=== PATIENT | male | born 1975 | race Caucasian/White ===

== ENCOUNTER 2023-06-25 17:56 | Inpatient (IN) ==
--- NOTE | 2023-06-25 18:02 | ED Triage Note ---
Date of Service June 25, 2023 History of Present Illness This patient was briefly evaluated while in triage. An abbreviated physical exam was performed. This patient is a 47-year-old Male who presents to the ED for evaluation of severe back pain. He states he has a known herniated disc and is scheduled for surgery with Dr. Elkins later this month. He states he is now unable to walk and is in severe pain. They talked to Dr. Elkins's office and were told to come to the ER if he could not handle the pain at home. He has been taking aleve without relief. Physical Exam VITALS: Vitals are noted on the nurse's note and reviewed by myself. GENERAL: This is a 47-year-old male, leaning over in his wheelchair, dry heaving into an emesis bag. NEURO: Patient was alert and oriented to person place and time. Initial orders for labs and / or imaging were placed and patient was placed in the waiting area until a bed is available. Please see further documentation for the full ED course.
--- NOTE | 2023-06-25 19:09 | Emergency Department Note ---
ED Provider Note History of Present Illness Chief Complaint: Back Injury/Pain Stated Complaint: HERNIATED DISK, BACK PAIN, VOMIT Time Seen by Provider: 06/25/23 19:07 This patient is a 47-year-old Male who presents to the ED for evaluation of severe back pain. He states he has a known herniated disc and is scheduled for surgery with Dr. Elkins later this month. He states he is now unable to walk and is in severe pain. He reports that he has had multiple falls due to weakness and difficulty walking. They talked to Dr. Elkins's office and were told to come to the ER if he could not handle the pain at home. He has been taking aleve without relief. He states that it has been very painful to urinate or have a bowel movement. He denies any incontinence. Home Medications Medication Instructions Recorded Confirmed Type diazepam 10 mg tablet 10 mg PO BID PRN Anxiety 06/25/23 06/25/23 History gabapentin 600 mg tablet 600 mg PO DIRECTED 06/25/23 06/25/23 History quetiapine 100 mg tablet 100 mg PO DAILY 06/25/23 06/25/23 History quetiapine 50 mg tablet 50 mg PO PM 06/25/23 06/25/23 History ropinirole 2 mg tablet 2 mg PO PM PRN Other 06/25/23 06/25/23 History Allergies Allergy/AdvReac Type Severity Reaction Status Date / Time diphenhydramine AdvReac Mild makes him Unverified 06/25/23 19:36 [From Benadryl] want to jump out of skin Past Med/Surg History Social History Smoking Status: Current every day smoker Tobacco Type: E-cigarettes / Vaping Preferred Language: Malian Feels Safe at Home: Yes Physical Exam Vital Signs Vital Signs - 24 hr 06/25/23 17:59 Temperature 36.7 C Temperature Source Temporal Artery Scan Pulse Rate 93 H Respiratory Rate 20 Respiratory Effort / Characteristics Non-Labored Spontaneous Respiratory Depth Normal Blood Pressure 127/65 Blood Pressure Mean 85 Pulse Oximetry 96 Oxygen Delivery Method Room Air Sepsis Recent Fever Within 48 Hours No Sepsis New/Unexplained Change in Mental Status N/A Sepsis Action Taken by Nursing No Action Required VITALS: Vitals are noted on the nurse's note and reviewed by myself. GENERAL: This is a 47-year-old male, uncomfortable appearing. SKIN: The skin was without rashes. HEART: Regular rate and rhythm without murmurs gallops or rubs. LUNGS: Clear to auscultation bilaterally without wheezes, rales or rhonchi. MUSCULOSKELETAL: There is generalized tenderness to the lumbar region of the back. Strength slightly decreased on the left compared to the right. NEURO: Patient was alert and oriented to person place and time. Distal sensation intact. Course Administered Medications Hydromorphone HCl (Hydromorphone Inj 1 Mg/Ml Syringe) 1 mg IV Q3H PRN PRN Reason: severe pain (scale 7-10) Stop: 07/09/23 20:49 Last Admin: 06/25/23 21:10 Dose: 1 mg Documented By: RACHAEL Lactated Ringer's (Lr) 1,000 mls @ 75 mls/hr IV .[id number] ANKITA Stop: 07/25/23 20:49 Last Admin: 06/25/23 21:15 Dose: 75 mls/hr Documented By: RACHAEL Acetaminophen (Ofirmev) 1,000 mg in 100 mls @ 400 mls/hr IV Q8H PRN PRN Reason: Pain Rating 1-3 & Pre PT Stop: 06/26/23 20:50 Last Infusion: 06/25/23 21:31 Dose: 0 mls/hr Documented By: Admin: 06/25/23 21:15 Dose: 400 mls/hr Documented By: RACHAEL Lorazepam (Lorazepam 2 Mg/1 Ml Vial) 0.5 mg IV Q8H PRN PRN Reason: Sedation/Anxiety Stop: 07/25/23 20:49 Last Admin: 06/25/23 21:10 Dose: 0.5 mg Documented By: RACHAEL Oxycodone HCl (Oxycodone Hcl Ir 5 Mg Tab (Immediate Release)) 5 - 10 mg PO Q4H PRN PRN Reason: mod to severe pain Stop: 07/09/23 20:49 Last Admin: 06/25/23 22:46 Dose: 10 mg Documented By: RACHAEL Discontinued Medications Cyclobenzaprine HCl (Cyclobenzaprine Hcl 10 Mg Tab) 10 mg PO NOW STA Stop: 06/25/23 21:43 Last Admin: 06/25/23 22:26 Dose: 10 mg Documented By: JASMIN Dexamethasone Sodium Phosphate (DexamethasonePf 10 Mg/Ml Vial) 10 mg IV NOW ONE Stop: 06/25/23 19:18 Last Admin: 06/25/23 20:02 Dose: 10 mg Documented By: NELLA Hydromorphone HCl (Hydromorphone Inj 1 Mg/Ml Syringe) 1 mg IV NOW STA Stop: 06/25/23 19:14 Last Admin: 06/25/23 19:59 Dose: 1 mg Documented By: NELLA Ketorolac Tromethamine (Ketorolac 30 Mg/Ml Vial) 30 mg IV NOW ONE Stop: 06/25/23 21:54 Last Admin: 06/25/23 22:26 Dose: 30 mg Documented By: JASMIN Medical Decision Making Differential Diagnosis Differential diagnosis includes cauda equina syndrome, cord compression, disc herniation, muscle spasm, lumbar strain, epidural abscess, malignancy, transverse myelitis, urinary tract infection, colitis, diverticulitis, kidney stone, among others. Home Medications was personally reviewed by ma Laboratory Data 06/25/23 21:01 06/25/23 21:01 MDM Narrative This patient is a 47-year-old male who presents to the emergency department for evaluation of severe back pain and ambulatory dysfunction. Patient has a known lumbar disc herniation and is scheduled for surgery later this month with Dr. Elkins. I did speak with Dr. Elkins who felt that it was reasonable to admit the patient given his ambulatory dysfunction. He did request repeat MRI and this was ordered. Dilaudid was ordered for pain. Impression Lumbar radiculopathy, Ambulatory dysfunction Discharge Plan Visit Data Chief Complaint: Back Injury/Pain Stated Complaint: HERNIATED DISK, BACK PAIN, VOMIT ED Provider: Lisa Medina ED Midlevel Provider: Debbie Schmitz Discharge Problem: Lumbar radiculopathy, Ambulatory dysfunction Patient Disposition: Admitted As Inpatient Discharge Instructions Interventions: ED Discharge Assessment Last Done: 06/25/23 20:45
[2023-06-25] MEDS ORDERED: HYDROmorphone INJ 1 MG/ML SYRINGE IV STA (19:13)
[2023-06-25] MEDS ORDERED: dexAMETHasone**PF** 10 MG/ML VIAL IV ONE (19:17)
[2023-06-25] MEDS ORDERED: ONDANSETRON 4 MG OD TAB PO PRN (20:50)
[2023-06-25] MEDS ORDERED: ONDANSETRON INJ 2 MG/ML 2 ML VIAL IV PRN (20:50)
[2023-06-25] MEDS ORDERED: PROMETHAZINE HCL 12.5 MG in SODIUM CHLORIDE 0.9% 50 ML IV PRN (20:50)
[2023-06-25] MEDS ORDERED: LORazepam 0.5 MG TAB PO PRN (20:50)
[2023-06-25] MEDS ORDERED: METOCLOPRAMIDE HCL INJ 5 MG/ML 2 ML VIAL IV PRN (20:50)
[2023-06-25] MEDS ORDERED: NALOXONE HCL 0.4 MG/1 ML VIAL/CARP IV PRN (20:50)
[2023-06-25] MEDS ORDERED: HYDROmorphone INJ 0.5 MG/0.5 ML SYR IV PRN (20:50)
[2023-06-25] MEDS: HYDROmorphone INJ 1 MG/ML SYRINGE IV PRN ×2 (21:10→23:43)
[2023-06-25] MEDS: LORazepam 2 MG/1 ML VIAL IV PRN (21:10)
[2023-06-25] MEDS: LACTATED RINGER'S 1,000 ML IV SCH (21:15)
[2023-06-25] MEDS: ACETAMINOPHEN 1,000 MG/100 ML VIAL IV PRN (21:15)
[2023-06-25 21:29] LABS: Basophils # (auto) 0.02 K/uL (0-0.2); Basophils % (auto) 0.5 %; Eosinophils # (auto) 0.11 K/uL (0-0.50); Eosinophils % (auto) 2.6 %; Hematocrit (blood only) 40.8 % (42.0-52.0); Hemoglobin 13.4 g/dl (14.0-18.0); Immature Granulocytes # (auto) 0.01 K/uL (0.01-0.20); Immature Granulocytes % (auto) 0.2 %; Lymphocytes % (auto) 23.2 %; Mean Corpuscular Hemoglobin 26.4 pg (25.0-34.0); Mean Corpuscular Hgb Conc 32.8 g/dL (32.0-36.0); Mean Corpuscular Volume 80.3 fL (80.0-100.0); Mean Platelet Volume 10.2 fL (9.4-12.4); Monocytes # (auto) 0.25 K/uL (0.11-0.59); Monocytes % (auto) 5.8 %; Neutrophils # (auto) 2.92 K/uL (1.40-6.50); Neutrophils % (auto) 67.7 %; Platelet Count 209 K/uL (130-400); RDW Coefficient of Variation 17.3 % (11.5-14.5); RDW Standard Deviation 50.4 fL (36.4-46.3); Red Blood Count 5.08 M/uL (4.70-6.10); White Blood Count 4.31 K/ul (4.8-10.8)
[2023-06-25] MEDS ORDERED: HYDROmorphone INJ 0.5 MG/0.5 ML SYR IV STA (21:42)
[2023-06-25] MEDS ORDERED: CYCLOBENZAPRINE HCL 10 MG TAB PO STA (21:42)
[2023-06-25 21:47] LABS: Albumin Globulin Ratio 1.5 (0.9-2); Albumin Level 3.8 gm/dl (3.4-5.0); BUN Creatinine Ratio 13.2 (10-20); Bilirubin,Total 0.3 mg/dl (0.2-1.0); Calcium 8.1 mg/dl (8.6-10.3); Creatinine Clr Calc Pharmacy 77.1 ml/min; Est GFR (African American) 81.6 ml/min; Est GFR (Non-African American) 70.4 ml/min; Globulin 2.5 gm/dl (2.5-4.0); Potassium 4.4 mmol/L (3.5-5.1); Total Protein 6.3 gm/dl (6.0-8.3)
[2023-06-25] MEDS ORDERED: KETOROLAC 30 MG/ML VIAL IV ONE (21:53)
[2023-06-25] MEDS: oxyCODONE HCL IR 5 MG TAB (IMMEDIATE RELEASE) PO PRN (22:46)
[2023-06-25] MEDS ORDERED: diazePAM 5 MG TABLET PO PRN (22:56)
[2023-06-25] MEDS: rOPINIRole HCL 2 MG TABLET PO PRN (23:44)
[2023-06-25] MEDS: GABAPENTIN 600 MG TAB PO SCH (23:44)
[2023-06-26] MEDS: QUEtiapine FUMARATE 25 MG TABLET PO SCH ×2 (00:40→22:29)
--- NOTE | 2023-06-26 01:18 | Consultation ---
Date of Consultation June 26, 2023 Assessment & Plan (1) Lumbar radiculopathy: 47-year-old male presents with severe back pain lumbar radiculopathy and ambulatory dysfunction Severe back pain Ambulatory dysfunction We will follow MRI Pain control we will get preop chest x-ray and EKG and if okay patient should at acceptable risk for surgery Await Ortho input DVT prophylaxis and disposition as per orthopedics History of Present Illness Reason for Consultation: Severe back pain Attending Physician: Nadir Elkins DO History of Present Illness 47-year-old male with no significant past medical history as per patient and taking medication just to relax him as he is a workaholic was admitted for severe back pain. Patient states his back pain for for a long time but lately got worse. Last couple of days it got worse again difficult to ambulate and falling frequently. Denies numbness lower extremity. States she has to wait for 30 seconds to micturate or to move his bowels and attributes increased pain. A lot of nausea today. Afebrile. Denies any headache. Once in a while he gets runny nose. No cough. No difficulty swallowing. No chest pain or shortness of breath. No abdominal pain. Currently resting comfortably. Past medical history mentioned above Social history denies smoking or drug use. Alcohol occasional. Family history father had massive CA at age 56. Mother has insomnia Allergies Allergy/AdvReac Type Severity Reaction Status Date / Time diphenhydramine AdvReac Mild makes him Unverified 06/25/23 19:36 [From Benadryl] want to jump out of skin Home Medications Medication Instructions Recorded Confirmed Type diazepam 10 mg tablet 10 mg PO BID PRN Anxiety 06/25/23 06/25/23 History gabapentin 600 mg tablet 600 mg PO DIRECTED 06/25/23 06/25/23 History quetiapine 100 mg tablet 100 mg PO DAILY 06/25/23 06/25/23 History quetiapine 50 mg tablet 50 mg PO PM 06/25/23 06/25/23 History ropinirole 2 mg tablet 2 mg PO PM PRN Other 06/25/23 06/25/23 History Patient History Social History Smoking Status: Current every day smoker Tobacco Type: E-cigarettes / Vaping Preferred Language: Guatemalan Feels Safe at Home: Yes Review of Systems Review of Systems: All systems reviewed & are unremarkable except as noted in Subjective Physical Exam Physical Exam: General- not in distress Head- atraumatic Eyes- EOMI, Neck- supple, no JVD, Lungs- clear to auscultation and percussion no added sounds Heart- regular rate and rhythm; no murmur, no gallop. Abdomen- normal bowel sounds, soft, nontender, no distension Extremities- no pretibial edema, no erythema seen Neuro- alert, oriented x 3, EOMI; no facial palsy; no dysarthria; painful lower extermity movements Skin- warm & dry Results & Data Vital Signs (Past 12 Hours) Vital Signs Temp Pulse Pulse Resp BP BP Pulse Ox 06/25/23 22:50 177/104 H 06/25/23 20:56 36.5 C 75 24 192/103 H 94 06/25/23 20:00 90 18 94 06/25/23 20:00 90 18 171/70 H 94 06/25/23 17:59 36.7 C 93 H 20 127/65 96 O2 Del Method 06/25/23 22:50 06/25/23 20:56 Room Air 06/25/23 20:00 Room Air 06/25/23 20:00 Room Air 06/25/23 17:59 Room Air
--- NOTE | 2023-06-26 01:47 | Magnetic Resonance Report ---
Exam(s): MRI L SPINE Without Contrast EXAM: MR Lumbar Spine Without Intravenous Contrast CLINICAL HISTORY: Reason for exam: Low back pain, leg weakness. TECHNIQUE: Magnetic resonance images of the lumbar spine without intravenous contrast in multiple planes. COMPARISON: No relevant prior studies available. FINDINGS: Vertebrae: There are 5 lumbar type vertebral bodies with a mild levoscoliosis and shallow lumbar lordosis. There is mild grade 1 retrolisthesis of L2 on L3 measuring 3 mm and retrolisthesis of L3 on L4 measuring 2 mm. There is mild wedging of the L1 and L2 segments, which may be physiologic. Otherwise, there is normal vertebral body height and alignment. The bone marrow signal is heterogeneous with areas of focal fat or venous malformations. No acute fracture. There is mild wedging of the T11 and T12 segments, which is likely physiologic. Spinal cord: The conus is normal size, shape and signal characteristics, terminating at T12-L1. Soft tissues: Mild atrophy of the psoas, paraspinous and intraspinous musculature. The aorta and IVC flow voids are intact. The visualized kidneys are unremarkable. DISCS/SPINAL CANAL/NEURAL FORAMINA: L1-L2: There is mild disc degeneration with disc bulge asymmetric to the left flattening of ventral thecal sac. There is minimal to mild facet arthropathy with mild synovitis. L2-L3: Moderate distal duration with annular disc bulge asymmetric to the right causing a moderate right subarticular recess stenosis with mild impingement of the transiting right L3 nerve root. There is disc extending to the neural foramina without evidence of impingement or significant stenosis. There is mild facet arthropathy with mild synovitis. L3-L4: Moderate disc degeneration with annular disc bulge and superimposed caudally dissecting central disc extrusion measuring 8.0 x 5. 8 mm causing a mild subarticular recess stenosis with superimposed spondylolisthesis causing a moderately severe spinal canal stenosis. At one point there is disc extends into the neural foramina causing mild bilateral stenosis without evidence of neural impingement. Mild to moderate facet joint arthropathy with mild synovitis. L4-L5: There is mild disc degeneration with disc bulge causing a mild subarticular recess stenosis. There is a mild facet arthropathy with mild synovitis. L5-S1: There is mild disc degeneration with annular disc bulge causing a mild left subarticular recess stenosis with disc extends to the neural foramina causing mild bilateral stenosis without evidence of neural impingement. There is minimal to mild facet arthropathy with mild synovitis. IMPRESSION: 1. Moderate disc degeneration at L2-3 and L3-4 with mild disc degeneration at L1-L2, L4-5 and L5-S1 with annular disc bulging or disc extrusion flattening the ventral thecal sac and causing a mild subarticular recess stenosis at L3-4 and L5-S1 and a moderate right subarticular recess stenosis at L2-3 with mild impingement of the transiting right L3 nerve root. 2. There is a moderately severe spinal canal stenosis at L3-4. 3. There is mild bilateral L3-4, and mild bilateral L5-S1 neuroforaminal stenosis without evidence of neural impingement. 4. There is minimal to mild facet arthropathy with mild synovitis. 5. No evidence of fracture, infection, tumor or arachnoiditis. Electronically signed by: Hilary Fernando MD 06/26/23 01:46 AM
[2023-06-26] MEDS: HYDROmorphone INJ 1 MG/ML SYRINGE IV PRN ×5 (04:01→22:39)
[2023-06-26] MEDS: oxyCODONE HCL IR 5 MG TAB (IMMEDIATE RELEASE) PO PRN ×4 (05:26→18:27)
[2023-06-26] MEDS: ACETAMINOPHEN 1,000 MG/100 ML VIAL IV PRN ×2 (05:27→15:27)
[2023-06-26] MEDS ORDERED: KETOROLAC TROMETHAMINE 15 MG/ML VIAL IV ONE (06:04)
[2023-06-26] MEDS: LORazepam 2 MG/1 ML VIAL IV PRN ×2 (07:44→16:26)
--- NOTE | 2023-06-26 08:11 | XRay Report ---
XR chest 1V portable CLINICAL HISTORY: Preoperative evaluation. COMPARISON STUDY: No previous studies for comparison. FINDINGS: Lung volumes are normal. Lungs are clear. There is no pneumothorax or pleural effusion. Car diac size is normal. Mediastinal contours are normal. There is no evidence for pulmonary edema. IMPRESSION: No acute cardiopulmonary findings. ACT 112: Negative or not required by law. Electronically signed by: Tim De La Rosa M.D. 06/26/2023 8:10 AM
[2023-06-26] MEDS: GABAPENTIN 600 MG TAB PO SCH ×2 (08:28→22:30)
[2023-06-26] MEDS: QUEtiapine FUMARATE 100 MG TABLET PO SCH (08:28)
--- NOTE | 2023-06-26 08:51 | History & Physical Report ---
Date of Service June 26, 2023 Assessment & Plan (1) Neurogenic claudication due to lumbar spinal stenosis: Plan: Assessment severe lumbar spinal stenosis with radiculopathy. Plan at this time an updated MRI does continue to demonstrate severe spinal stenosis at L3-L4 followed by L2-L3. There is facet hypertrophy L5-S1 on the left. Plan at this point has had a steady decline in status and recommending urgent decompression fusion L2-L3 L3-L4. He will require wide decompression compromise in the facet joints contributing to iatrogenic instability subsequently requiring stabilization by way of fusion. Risk benefits pros cons alternatives in detail. This time we will try to have surgery ranged and performed as soon as possible. Admission and Anticipated Discharge Date Admission Date: June 25, 2023 History of Present Illness Chief Complaint: Severe back and bilateral leg pain with weakness Primary Care Provider: Erlin Welch This is a 47-year-old male who presents with marked decline in status. He is struggling with severe lumbosacral back pain rating down the posterior thighs. Markedly limits his ability to stand and ambulate. He is having significant issues with urinary retention. He describes breakaway weakness secondary to pain. He is scheduled for surgery towards the end of this month. Allergies Allergy/AdvReac Type Severity Reaction Status Date / Time diphenhydramine AdvReac Mild makes him Unverified 06/25/23 19:36 [From Benlesl] want to jump out of skin Home Medications Medication Instructions Recorded Confirmed Type diazepam 10 mg tablet 10 mg PO BID PRN Anxiety 06/25/23 06/25/23 History gabapentin 600 mg tablet 600 mg PO DIRECTED 06/25/23 06/25/23 History quetiapine 100 mg tablet 100 mg PO DAILY 06/25/23 06/25/23 History quetiapine 50 mg tablet 50 mg PO PM 06/25/23 06/25/23 History ropinirole 2 mg tablet 2 mg PO PM PRN Other 06/25/23 06/25/23 History Past Med/Surg History Social History Smoking Status: Current every day smoker Tobacco Type: E-cigarettes / Vaping Do You Dip or Chew Tobacco: No; Hx Alcohol Use: Yes Alcohol type: beer Hx Substance Use: No Preferred Language: Bulgarian Communication Ability: Effective Catering Service Manager Required: No Beliefs That Will Affect Care: None Current Living Situation: Spouse Other Information That Helps Us Care for You: No Feels Safe at Home: Yes Safety Concerns: Feels Safe At This Time Assistive Devices: None Physical Exam Physical Exam: On exam he is currently in bed. He demonstrates 4+/5 quadriceps plantarflexion dorsiflexion. Sensory is intact. Is marked tension signs with straight leg raising. He is in obvious severe distress. Results & Data Results & Data Vital Signs (Past 12 Hours) Vital Signs Temp Pulse Resp BP Pulse Ox O2 Del Method 06/26/23 07:35 36.4 C L 54 L 16 151/90 H 98 Room Air 06/26/23 06:18 61 16 157/89 H 99 Room Air 06/25/23 20:50 Room Air 06/26/23 03:11 16 06/25/23 22:50 177/104 H 06/25/23 20:56 36.5 C 75 24 192/103 H 94 Room Air Code Status & VTE Plan VTE Prophylaxis Plan VTE Prophylaxis will be ordered: Yes
[2023-06-26] MEDS ORDERED: HYDROmorphone INJ 1 MG/ML SYRINGE IV STA (09:52)
[2023-06-26] MEDS: KETOROLAC 30 MG/ML VIAL IV PRN ×2 (11:55→18:28)
[2023-06-26] MEDS: diazePAM 5 MG TABLET PO PRN ×2 (12:00→22:29)
[2023-06-26] MEDS: LACTATED RINGER'S 1,000 ML IV SCH (12:02)
[2023-06-26] MEDS: dexAMETHasone 8 MG in SYRINGE 0 ML IV SCH ×2 (13:35→22:32)
[2023-06-26] MEDS: POLYETHYLENE (MIRALAX) 17 GM PACK PO SCH (16:50)
[2023-06-27] MEDS: oxyCODONE HCL IR 5 MG TAB (IMMEDIATE RELEASE) PO PRN ×5 (00:52→21:40)
[2023-06-27] MEDS: KETOROLAC 30 MG/ML VIAL IV PRN ×3 (00:53→23:47)
[2023-06-27] MEDS: LACTATED RINGER'S 1,000 ML IV SCH ×2 (01:40→15:51)
[2023-06-27] MEDS: HYDROmorphone INJ 1 MG/ML SYRINGE IV PRN ×10 (01:47→23:47)
[2023-06-27] MEDS: ACETAMINOPHEN 500 MG TAB PO PRN (01:54)
[2023-06-27] MEDS: LORazepam 2 MG/1 ML VIAL IV PRN ×3 (02:14→19:40)
[2023-06-27] MEDS: dexAMETHasone 8 MG in SYRINGE 0 ML IV SCH (05:01)
[2023-06-27 07:26] LABS: Hematocrit (blood only) 38.8 % (42.0-52.0); Hemoglobin 12.4 g/dl (14.0-18.0); Mean Corpuscular Hemoglobin 25.9 pg (25.0-34.0); Mean Platelet Volume 10.1 fL (9.4-12.4); Platelet Count 175 K/uL (130-400); RDW Coefficient of Variation 17.2 % (11.5-14.5); Red Blood Count 4.79 M/uL (4.70-6.10); White Blood Count 8.98 K/ul (4.8-10.8)
--- NOTE | 2023-06-27 07:32 | Hospitalist Progress Note ---
Date of Service June 27, 2023 Assessment & Plan (1) Lumbar radiculopathy: Plan: 47-year-old male presents with severe back pain lumbar radiculopathy and ambulatory dysfunction Severe back pain Ambulatory dysfunction Repeated MRI inpt - 1. Moderate disc degeneration at L2-3 and L3-4 with mild disc degeneration at L1-L2, L4-5 and L5-S1 with annular disc bulging or disc extrusion flattening the ventral thecal sac and causing a mild subarticular recess stenosis at L3-4 and L5-S1 and a moderate right subarticular recess stenosis at L2-3 with mild impingement of the transiting right L3 nerve root. 2. There is a moderately severe spinal canal stenosis at L3-4. 3. There is mild bilateral L3-4, and mild bilateral L5-S1 neuroforaminal stenosis without evidence of neural impingement. 4. There is minimal to mild facet arthropathy with mild synovitis. 5. No evidence of fracture, infection, tumor or arachnoiditis. Pain control Admitted under orthopedics service - may likely need surgical intervention Preop chest x-ray and EKG obtained and reviewed. Pt is quite physically active (prior to having severe back pain), and never had chest pain or shortness of breath w/ exercise. Acceptable for surgery. Constipation Bowel regimen w/ miralax, colace, dulcolax ordered DVT prophylaxis and disposition as per orthopedics Admission and Anticipated Discharge Date Admission Date: June 25, 2023 Subjective Pt seen in follow up of back pain, plan for lumbar spine surgery He is laying in bed in NAD, complains of back pain and constipation Pt's present at the bedside Pt is usually quite physically active and never have chest pain or shortness of breath with exercise He reports he only gets short of breath when his back pain is severe Review of Systems Review of Systems: All systems reviewed & are unremarkable except as noted in Subjective Physical Exam Physical Exam: General- WD/WN M in NAD Head- atraumatic Eyes- EOMI, Neck- supple, no JVD, Lungs- clear to auscultation b/l Heart- regular rate and rhythm Abdomen- normal bowel sounds, soft, nontender, no distension Extremities- no pretibial edema, no erythema seen Neuro- alert, oriented x 3, EOMI; no facial palsy; no dysarthria; painful lower extremity movements Skin- warm & dry, multiple tattoos Results & Data Results & Data Vital Signs (Past 12 Hours) Vital Signs Temp Pulse Resp BP Pulse Ox O2 Del Method 06/26/23 22:30 Room Air 06/26/23 21:37 36.5 C 76 18 155/83 H 97 Room Air Laboratory Results 06/27/23 06/27/23 Range/Units 06:28 06:28 WBC 8.98 (4.8-10.8) K/ul RBC 4.79 (4.70-6.10) M/uL Hgb 12.4 L (14.0-18.0) g/dl Hct 38.8 L (42.0-52.0) % MCV 81.0 (80.0-100.0) fL MCH 25.9 (25.0-34.0) pg MCHC 32.0 (32.0-36.0) g/dL RDW Std Deviation 51.0 H (36.4-46.3) fL RDW Coeff of Dhaval 17.2 H (11.5-14.5) % Plt Count 175 (130-400) K/uL MPV 10.1 (9.4-12.4) fL Sodium 136 (136-145) mmol/L Potassium 4.5 (3.5-5.1) mmol/L Chloride 104 (98-107) mmol/L Carbon Dioxide 29 (21-32) mmol/L Anion Gap 3 (3-11) BUN 20 (6-23) mg/dl Creatinine 0.81 D (0.6-1.4) mg/dl Est Cr Clr Drug Dosing 115.2 ml/min Est GFR ( Amer) 121.8 ml/min Est GFR (Non-Af Amer) 105.1 ml/min BUN/Creatinine Ratio 24.7 H (10-20) Glucose 178 H (70-99(Fasting)) mg/dl Calcium 8.3 L (8.6-10.3) mg/dl Magnesium 1.9 (1.7-2.4) mg/dl Medications Administered Current Inpatient Medications Acetaminophen (Acetaminophen 500 Mg Tab) 1,000 mg PO Q8H PRN PRN Reason: MILD Pain Scale 1,2,3 & Pre PT Stop: 07/25/23 20:49 Last Admin: 06/27/23 01:54 Dose: 1,000 mg Diazepam (Diazepam 5 Mg Tablet) 10 mg PO TID PRN PRN Reason: spasms Stop: 07/26/23 09:40 Last Admin: 06/26/23 22:29 Dose: 10 mg Gabapentin (Gabapentin 600 Mg Tab) 600 mg PO BID [facility] Stop: 07/25/23 22:59 Last Admin: 06/26/23 22:30 Dose: 600 mg Hydromorphone HCl (Hydromorphone Inj 0.5 Mg/0.5 Ml Syr) 0.5 mg IV Q3H PRN PRN Reason: MOD pain (scale 4-6) & Pre PT Stop: 07/09/23 20:49 Hydromorphone HCl (Hydromorphone Inj 1 Mg/Ml Syringe) 1 mg IV Q3H PRN PRN Reason: severe pain (scale 7-10) Stop: 07/09/23 20:49 Last Admin: 06/27/23 04:57 Dose: 1 mg Lactated Ringer's (Lr) 1,000 mls @ 75 mls/hr IV .[id number] [facility] Stop: 07/25/23 20:49 Last Admin: 06/27/23 01:40 Dose: 75 mls/hr Promethazine HCl 12.5 mg/ (Sodium Chloride) 50.5 mls @ 202 mls/hr IV Q6H PRN PRN Reason: Nausea &/or Vomiting Stop: 07/25/23 20:49 Dexamethasone 8 mg/ Syringe 2 mls @ 1 mls/min IV Q8H [facility] Stop: 07/26/23 13:59 Last Admin: 06/27/23 05:01 Dose: 1 mls/min Ketorolac Tromethamine (Ketorolac 30 Mg/Ml Vial) 30 mg IV Q6H PRN PRN Reason: Pain Stop: 07/01/23 11:29 Last Admin: 06/27/23 00:53 Dose: 30 mg Lorazepam (Lorazepam 0.5 Mg Tab) 0.5 mg PO Q8H PRN PRN Reason: sedation/anxiety Stop: 07/25/23 20:49 Lorazepam (Lorazepam 2 Mg/1 Ml Vial) 0.5 mg IV Q8H PRN PRN Reason: Sedation/Anxiety Stop: 07/25/23 20:49 Last Admin: 06/27/23 02:14 Dose: 0.5 mg Metoclopramide HCl (Metoclopramide Hcl Inj 5 Mg/Ml 2 Ml Vial) 10 mg IV Q6H PRN PRN Reason: Nausea &/or Vomiting Stop: 07/25/23 20:49 Naloxone HCl (Naloxone Hcl 0.4 Mg/1 Ml Vial/Carp) 0.1 mg IV Q5M PRN PRN Reason: Oversedation/respiratory dep Stop: 07/25/23 20:49 Ondansetron HCl (Ondansetron Inj 2 Mg/Ml 2 Ml Vial) 4 mg IV Q6H PRN PRN Reason: Nausea &/or Vomiting Stop: 07/25/23 20:49 Ondansetron HCl (Ondansetron 4 Mg Od Tab) 4 mg PO Q6H PRN PRN Reason: Nausea Stop: 07/25/23 20:49 Oxycodone HCl (Oxycodone Hcl Ir 5 Mg Tab (Immediate Release)) 5 - 10 mg PO Q4H PRN PRN Reason: mod to severe pain Stop: 07/09/23 20:49 Last Admin: 06/27/23 05:57 Dose: 10 mg Polyethylene Glycol (Polyethylene (Miralax) 17 Gm Pack) 17 gm PO DAILY ANKITA Stop: 07/26/23 15:44 Last Admin: 06/26/23 16:50 Dose: 17 gm Quetiapine Fumarate (Quetiapine Fumarate 100 Mg Tablet) 100 mg PO DAILY ANKITA Stop: 07/26/23 08:59 Last Admin: 06/26/23 08:28 Dose: 100 mg Quetiapine Fumarate (Quetiapine Fumarate 25 Mg Tablet) 50 mg PO PM ANKITA Stop: 07/25/23 22:54 Last Admin: 06/26/23 22:29 Dose: 50 mg Ropinirole HCl (Ropinirole Hcl 2 Mg Tablet) 2 mg PO PM PRN PRN Reason: Other Stop: 07/25/23 22:53 Last Admin: 06/25/23 23:44 Dose: 2 mg
[2023-06-27 08:02] LABS: BUN Creatinine Ratio 24.7 (10-20); Calcium 8.3 mg/dl (8.6-10.3); Creatinine Clr Calc Pharmacy 115.2 ml/min; Est GFR (African American) 121.8 ml/min; Est GFR (Non-African American) 105.1 ml/min; Magnesium 1.9 mg/dl (1.7-2.4); Potassium 4.5 mmol/L (3.5-5.1)
--- NOTE | 2023-06-27 08:53 | Orthopedic Progress Note ---
Date of Service June 27, 2023 Assessment & Plan (1) Neurogenic claudication due to lumbar spinal stenosis: Plan: Patient is still having quite severe pain. Is requiring IV Dilaudid in addition to his oxycodone and Ativan. We can increase the frequency of his Dilaudid to take 1 mg every 2 hours instead of every 3. He is increase his bowel regimen to include MiraLAX, Dulcolax, and Colace. He requires any assistance for ambulation. He does not feel that he is able to go home secondary to his inability to ambulate. We will continue to work with pain control measures and increase his bowel regiment. Admission and Anticipated Discharge Date Admission Date: June 25, 2023 Subjective Patient was seen bedside in room 310. He is still having several months of pain despite being on oxycodone, Dilaudid, and Ativan. He has not yet had a bowel movement and is uncomfortable. He is unable to ambulate independently to the bathroom and requires assistance just to get out of bed. He is scheduled for surgery this coming Friday. He continues to have pain in the lower portion of his back affecting both of his legs. Physical Exam Physical Exam: On exam he is alert and oriented. He appears uncomfortable. His blood pressure is elevated at 160/95. He is able to move his legs to gravity. His abdomen soft and nontender his calves are supple nontender. His gait was not observed. Results & Data Vital Signs (Past 12 Hours) Vital Signs Temp Pulse Resp BP Pulse Ox O2 Del Method 06/27/23 07:45 36.8 C 62 18 160/95 H 97 Room Air 06/26/23 22:30 Room Air 06/26/23 21:37 36.5 C 76 18 155/83 H 97 Room Air
[2023-06-27] MEDS: GABAPENTIN 600 MG TAB PO SCH ×2 (08:56→20:50)
[2023-06-27] MEDS: POLYETHYLENE (MIRALAX) 17 GM PACK PO SCH ×2 (08:56→20:49)
[2023-06-27] MEDS: QUEtiapine FUMARATE 100 MG TABLET PO SCH (08:56)
[2023-06-27] MEDS ORDERED: bisacodyL 10 MG SUPP PR STA (11:16)
[2023-06-27] MEDS: DOCUSATE SODIUM 100 MG CAP PO SCH ×2 (11:55→20:48)
[2023-06-27] MEDS: diazePAM 5 MG TABLET PO PRN ×2 (16:23→21:40)
[2023-06-27] MEDS: QUEtiapine FUMARATE 25 MG TABLET PO SCH (20:50)
[2023-06-27] MEDS ORDERED: POLYETHYLENE (MIRALAX) 17 GM PACK PO SCH (21:00)
--- NOTE | 2023-06-27 21:48 | Electrocardiogram Report ---
Test Reason : Blood Pressure : / mmHG Vent. Rate : 066 BPM Atrial Rate : 066 BPM P-R Int : 148 ms QRS Dur : 096 ms QT Int : 416 ms P-R-T Axes : 078 062 075 degrees QTc Int : 436 ms Normal sinus rhythm Possible Anterior infarct , age undetermined Abnormal ECG No previous ECGs available Confirmed by Rj Chow ([id number]) on 06/27/2023 9:47:52 PM Referred By: REFERRED SELF Confirmed By:Rj Chow
[2023-06-28] MEDS: HYDROmorphone INJ 1 MG/ML SYRINGE IV PRN ×10 (01:53→21:05)
[2023-06-28] MEDS: oxyCODONE HCL IR 5 MG TAB (IMMEDIATE RELEASE) PO PRN ×5 (03:54→21:59)
[2023-06-28] MEDS: LACTATED RINGER'S 1,000 ML IV SCH ×2 (03:58→16:42)
[2023-06-28] MEDS: KETOROLAC 30 MG/ML VIAL IV PRN (05:59)
[2023-06-28] MEDS: GABAPENTIN 600 MG TAB PO SCH ×2 (08:22→21:15)
[2023-06-28] MEDS: POLYETHYLENE (MIRALAX) 17 GM PACK PO SCH ×3 (08:22→21:15)
[2023-06-28] MEDS: DOCUSATE SODIUM 100 MG CAP PO SCH ×2 (08:22→21:14)
[2023-06-28] MEDS: QUEtiapine FUMARATE 100 MG TABLET PO SCH (08:23)
--- NOTE | 2023-06-28 10:08 | Orthopedic Progress Note ---
Date of Service June 28, 2023 Assessment & Plan (1) Neurogenic claudication due to lumbar spinal stenosis: Plan: At this time we will discontinue the Valium attempt Ativan for additional pain control. I have emphasized will not increase his narcotic availability. I attempted to suggest discharge today to follow-up next week but he feels his pain is not adequately controlled but not available tolerated at home. We will hopefully be able to move his surgery up sooner in the week. Admission and Anticipated Discharge Date Admission Date: June 25, 2023 Subjective patient continues to complain of 8 out of 10 back and leg pain despite IV medications. Physical Exam Physical Exam: Patient is in bed at this time. Is neurologically intact. Is alert and oriented and cooperative with exam. Results & Data Vital Signs (Past 12 Hours) Vital Signs Temp Pulse Resp BP Pulse Ox O2 Del Method 06/28/23 07:41 36.4 C L 61 18 138/82 99 Room Air
[2023-06-28] MEDS: LORazepam 1 MG TAB PO PRN ×3 (10:42→22:51)
--- NOTE | 2023-06-28 15:24 | Hospitalist Progress Note ---
Date of Service June 28, 2023 Assessment & Plan (1) Lumbar radiculopathy: Plan: 47-year-old male presents with severe back pain lumbar radiculopathy and ambulatory dysfunction Severe back pain Ambulatory dysfunction Repeated MRI inpt - 1. Moderate disc degeneration at L2-3 and L3-4 with mild disc degeneration at L1-L2, L4-5 and L5-S1 with annular disc bulging or disc extrusion flattening the ventral thecal sac and causing a mild subarticular recess stenosis at L3-4 and L5-S1 and a moderate right subarticular recess stenosis at L2-3 with mild impingement of the transiting right L3 nerve root. 2. There is a moderately severe spinal canal stenosis at L3-4. 3. There is mild bilateral L3-4, and mild bilateral L5-S1 neuroforaminal stenosis without evidence of neural impingement. 4. There is minimal to mild facet arthropathy with mild synovitis. 5. No evidence of fracture, infection, tumor or arachnoiditis. Pain control Admitted under orthopedics service - may likely need surgical intervention Preop chest x-ray and EKG obtained and reviewed. Pt is quite physically active (prior to having severe back pain), and never had chest pain or shortness of breath w/ exercise. Acceptable for surgery. Constipation Bowel regimen w/ miralax, colace, dulcolax ordered added milk of magnesia if no success, will give enema this evening - pt in agreement DVT prophylaxis and disposition as per orthopedics Admission and Anticipated Discharge Date Admission Date: June 25, 2023 Subjective Pt seen in follow up of back pain, plan for lumbar spine surgery He is laying in bed in NAD, continues to complain of back pain and constipation Pt's present at the bedside No chest pain, shortness of breath Review of Systems Review of Systems: All systems reviewed & are unremarkable except as noted in Subjective Physical Exam Physical Exam: General- WD/WN M in NAD Head- atraumatic Eyes- EOMI, Neck- supple, no JVD, Lungs- clear to auscultation b/l Heart- regular rate and rhythm Abdomen- normal bowel sounds, soft, nontender, no distension Extremities- no pretibial edema, no erythema seen Neuro- alert, oriented x 3, EOMI; no facial palsy; no dysarthria; painful lower extremity movements Skin- warm & dry, multiple tattoos Results & Data Results & Data Vital Signs (Past 12 Hours) Vital Signs Temp Pulse Resp BP Pulse Ox O2 Del Method 06/28/23 14:48 36.7 C 67 18 134/74 97 Room Air 06/28/23 07:41 36.4 C L 61 18 138/82 99 Room Air Medications Administered Current Inpatient Medications Acetaminophen (Acetaminophen 500 Mg Tab) 1,000 mg PO Q8H PRN PRN Reason: MILD Pain Scale 1,2,3 & Pre PT Stop: 07/25/23 20:49 Last Admin: 06/27/23 01:54 Dose: 1,000 mg Docusate Sodium (Docusate Sodium 100 Mg Cap) 100 mg PO BID [facility] Stop: 07/27/23 11:29 Last Admin: 06/28/23 08:22 Dose: 100 mg Gabapentin (Gabapentin 600 Mg Tab) 600 mg PO BID [facility] Stop: 07/25/23 22:59 Last Admin: 06/28/23 08:22 Dose: 600 mg Hydromorphone HCl (Hydromorphone Inj 0.5 Mg/0.5 Ml Syr) 0.5 mg IV Q3H PRN PRN Reason: MOD pain (scale 4-6) & Pre PT Stop: 07/09/23 20:49 Hydromorphone HCl (Hydromorphone Inj 1 Mg/Ml Syringe) 1 mg IV Q2H PRN PRN Reason: severe pain (scale 7-10) Stop: 07/09/23 20:49 Last Admin: 06/28/23 14:49 Dose: 1 mg Lactated Ringer's (Lr) 1,000 mls @ 75 mls/hr IV .[id number] [facility] Stop: 07/25/23 20:49 Last Admin: 06/28/23 03:58 Dose: 75 mls/hr Promethazine HCl 12.5 mg/ (Sodium Chloride) 50.5 mls @ 202 mls/hr IV Q6H PRN PRN Reason: Nausea &/or Vomiting Stop: 07/25/23 20:49 Lorazepam (Lorazepam 2 Mg/1 Ml Vial) 0.5 mg IV Q8H PRN PRN Reason: Sedation/Anxiety Stop: 07/25/23 20:49 Last Admin: 06/27/23 19:40 Dose: 0.5 mg Lorazepam (Lorazepam 1 Mg Tab) 1 mg PO Q6 PRN PRN Reason: sedation/anxiety Stop: 07/25/23 20:49 Last Admin: 06/28/23 10:42 Dose: 1 mg Metoclopramide HCl (Metoclopramide Hcl Inj 5 Mg/Ml 2 Ml Vial) 10 mg IV Q6H PRN PRN Reason: Nausea &/or Vomiting Stop: 07/25/23 20:49 Naloxone HCl (Naloxone Hcl 0.4 Mg/1 Ml Vial/Carp) 0.1 mg IV Q5M PRN PRN Reason: Oversedation/respiratory dep Stop: 07/25/23 20:49 Ondansetron HCl (Ondansetron Inj 2 Mg/Ml 2 Ml Vial) 4 mg IV Q6H PRN PRN Reason: Nausea &/or Vomiting Stop: 07/25/23 20:49 Ondansetron HCl (Ondansetron 4 Mg Od Tab) 4 mg PO Q6H PRN PRN Reason: Nausea Stop: 07/25/23 20:49 Oxycodone HCl (Oxycodone Hcl Ir 5 Mg Tab (Immediate Release)) 5 - 10 mg PO Q4H PRN PRN Reason: mod to severe pain Stop: 07/09/23 20:49 Last Admin: 06/28/23 13:44 Dose: 10 mg Polyethylene Glycol (Polyethylene (Miralax) 17 Gm Pack) 17 gm PO TID [facility] Stop: 07/27/23 20:59 Last Admin: 06/28/23 12:37 Dose: 17 gm Quetiapine Fumarate (Quetiapine Fumarate 100 Mg Tablet) 100 mg PO DAILY [facility] Stop: 07/26/23 08:59 Last Admin: 06/28/23 08:23 Dose: 100 mg Quetiapine Fumarate (Quetiapine Fumarate 25 Mg Tablet) 50 mg PO PM [facility] Stop: 07/25/23 22:54 Last Admin: 06/27/23 20:50 Dose: 50 mg Ropinirole HCl (Ropinirole Hcl 2 Mg Tablet) 2 mg PO PM PRN PRN Reason: Other Stop: 07/25/23 22:53 Last Admin: 06/25/23 23:44 Dose: 2 mg
[2023-06-28] MEDS ORDERED: MAGNESIUM HYDROXIDE SUSP 30 ML UDC PO ONE (17:52)
[2023-06-28] MEDS ORDERED: bisacodyL 10 MG SUPP PR STA (17:53)
[2023-06-28] MEDS: SIMETHICONE 80 MG CHEW PO PRN (18:58)
[2023-06-28] MEDS: QUEtiapine FUMARATE 25 MG TABLET PO SCH (21:15)
[2023-06-29] MEDS: HYDROmorphone INJ 1 MG/ML SYRINGE IV PRN ×9 (01:08→23:14)
[2023-06-29] MEDS: oxyCODONE HCL IR 5 MG TAB (IMMEDIATE RELEASE) PO PRN ×4 (02:13→17:09)
[2023-06-29] MEDS: LACTATED RINGER'S 1,000 ML IV SCH ×2 (05:43→18:37)
[2023-06-29] MEDS: POLYETHYLENE (MIRALAX) 17 GM PACK PO SCH ×3 (07:26→21:01)
[2023-06-29] MEDS: DOCUSATE SODIUM 100 MG CAP PO SCH ×2 (07:27→21:00)
[2023-06-29] MEDS: GABAPENTIN 600 MG TAB PO SCH ×2 (07:27→21:00)
[2023-06-29] MEDS: QUEtiapine FUMARATE 100 MG TABLET PO SCH (07:27)
--- NOTE | 2023-06-29 07:34 | Hospitalist Progress Note ---
Date of Service June 29, 2023 Assessment & Plan (1) Lumbar radiculopathy: Plan: 47-year-old male presents with severe back pain lumbar radiculopathy and ambulatory dysfunction Severe back pain Ambulatory dysfunction Repeated MRI inpt - 1. Moderate disc degeneration at L2-3 and L3-4 with mild disc degeneration at L1-L2, L4-5 and L5-S1 with annular disc bulging or disc extrusion flattening the ventral thecal sac and causing a mild subarticular recess stenosis at L3-4 and L5-S1 and a moderate right subarticular recess stenosis at L2-3 with mild impingement of the transiting right L3 nerve root. 2. There is a moderately severe spinal canal stenosis at L3-4. 3. There is mild bilateral L3-4, and mild bilateral L5-S1 neuroforaminal stenosis without evidence of neural impingement. 4. There is minimal to mild facet arthropathy with mild synovitis. 5. No evidence of fracture, infection, tumor or arachnoiditis. Pain control Admitted under orthopedics service - plan for surgery tmrw (06/29/2023) Preop chest x-ray and EKG obtained and reviewed. Pt is quite physically active (prior to having severe back pain), and never had chest pain or shortness of breath w/ exercise. Acceptable for surgery. Constipation Bowel regimen w/ miralax, colace, dulcolax ordered added milk of magnesia pt had a BM yesterday, cont. to closely monitor DVT prophylaxis and disposition as per orthopedics Admission and Anticipated Discharge Date Admission Date: June 25, 2023 Subjective Pt seen in follow up of back pain, plan for lumbar spine surgery He is laying in bed in NAD, continues to complain of back pain He had a BM last evening Pt's present at the bedside No chest pain, or shortness of breath Plan for surgery tmrw Review of Systems Review of Systems: All systems reviewed & are unremarkable except as noted in Subjective Physical Exam Physical Exam: General- WD/WN M in NAD Head- atraumatic Eyes- EOMI, Neck- supple, no JVD, Lungs- clear to auscultation b/l Heart- regular rate and rhythm Abdomen- normal bowel sounds, soft, nontender, no distension Extremities- no pretibial edema, no erythema seen Neuro- alert, oriented x 3, EOMI; no facial palsy; no dysarthria; painful lower extremity movements Skin- warm & dry, multiple tattoos Results & Data Results & Data Vital Signs (Past 12 Hours) Vital Signs Temp Pulse Resp BP Pulse Ox Pulse Ox O2 Del Method 06/28/23 21:15 Room Air 06/28/23 21:15 96 06/28/23 21:19 36.8 C 76 14 157/93 H 96 Room Air O2 Del Method 06/28/23 21:15 06/28/23 21:15 Room Air 06/28/23 21:19 Medications Administered Current Inpatient Medications Acetaminophen (Acetaminophen 500 Mg Tab) 1,000 mg PO Q8H PRN PRN Reason: MILD Pain Scale 1,2,3 & Pre PT Stop: 07/25/23 20:49 Last Admin: 06/27/23 01:54 Dose: 1,000 mg Docusate Sodium (Docusate Sodium 100 Mg Cap) 100 mg PO BID [facility] Stop: 07/27/23 11:29 Last Admin: 06/29/23 07:27 Dose: 100 mg Gabapentin (Gabapentin 600 Mg Tab) 600 mg PO BID [facility] Stop: 07/25/23 22:59 Last Admin: 06/29/23 07:27 Dose: 600 mg Hydromorphone HCl (Hydromorphone Inj 0.5 Mg/0.5 Ml Syr) 0.5 mg IV Q3H PRN PRN Reason: MOD pain (scale 4-6) & Pre PT Stop: 07/09/23 20:49 Hydromorphone HCl (Hydromorphone Inj 1 Mg/Ml Syringe) 1 mg IV Q2H PRN PRN Reason: severe pain (scale 7-10) Stop: 07/09/23 20:49 Last Admin: 06/29/23 05:43 Dose: 1 mg Lactated Ringer's (Lr) 1,000 mls @ 75 mls/hr IV .[id number] [facility] Stop: 07/25/23 20:49 Last Admin: 06/29/23 05:43 Dose: 75 mls/hr Promethazine HCl 12.5 mg/ (Sodium Chloride) 50.5 mls @ 202 mls/hr IV Q6H PRN PRN Reason: Nausea &/or Vomiting Stop: 07/25/23 20:49 Lorazepam (Lorazepam 2 Mg/1 Ml Vial) 0.5 mg IV Q8H PRN PRN Reason: Sedation/Anxiety Stop: 07/25/23 20:49 Last Admin: 06/27/23 19:40 Dose: 0.5 mg Lorazepam (Lorazepam 1 Mg Tab) 1 mg PO Q6 PRN PRN Reason: sedation/anxiety Stop: 07/25/23 20:49 Last Admin: 06/28/23 22:51 Dose: 1 mg Metoclopramide HCl (Metoclopramide Hcl Inj 5 Mg/Ml 2 Ml Vial) 10 mg IV Q6H PRN PRN Reason: Nausea &/or Vomiting Stop: 07/25/23 20:49 Naloxone HCl (Naloxone Hcl 0.4 Mg/1 Ml Vial/Carp) 0.1 mg IV Q5M PRN PRN Reason: Oversedation/respiratory dep Stop: 07/25/23 20:49 Ondansetron HCl (Ondansetron Inj 2 Mg/Ml 2 Ml Vial) 4 mg IV Q6H PRN PRN Reason: Nausea &/or Vomiting Stop: 07/25/23 20:49 Ondansetron HCl (Ondansetron 4 Mg Od Tab) 4 mg PO Q6H PRN PRN Reason: Nausea Stop: 07/25/23 20:49 Oxycodone HCl (Oxycodone Hcl Ir 5 Mg Tab (Immediate Release)) 5 - 10 mg PO Q4H PRN PRN Reason: mod to severe pain Stop: 07/09/23 20:49 Last Admin: 06/29/23 07:27 Dose: 10 mg Polyethylene Glycol (Polyethylene (Miralax) 17 Gm Pack) 17 gm PO TID [facility] Stop: 07/27/23 20:59 Last Admin: 06/29/23 07:26 Dose: 17 gm Quetiapine Fumarate (Quetiapine Fumarate 100 Mg Tablet) 100 mg PO DAILY [facility] Stop: 07/26/23 08:59 Last Admin: 06/29/23 07:27 Dose: 100 mg Quetiapine Fumarate (Quetiapine Fumarate 25 Mg Tablet) 50 mg PO PM [facility] Stop: 07/25/23 22:54 Last Admin: 06/28/23 21:15 Dose: 50 mg Ropinirole HCl (Ropinirole Hcl 2 Mg Tablet) 2 mg PO PM PRN PRN Reason: Other Stop: 07/25/23 22:53 Last Admin: 08/02/23 23:44 Dose: 2 mg Simethicone (Simethicone 80 Mg Chew) 80 mg PO Q6H PRN PRN Reason: Flatulence Stop: 07/28/23 18:00 Last Admin: 06/28/23 18:58 Dose: 80 mg
--- NOTE | 2023-06-29 10:04 | Orthopedic Progress Note ---
Date of Service June 29, 2023 Assessment & Plan (1) Neurogenic claudication due to lumbar spinal stenosis: Plan: This time he is still markedly uncomfortable requiring IV narcotics to control symptoms. We will make him n.p.o. after midnight and plan for surgery tomorrow. Admission and Anticipated Discharge Date Admission Date: June 25, 2023 Subjective Patient continues to have significant back and leg pain. He is requiring IV narcotics to control symptoms. Physical Exam Physical Exam: On exam he is most comfortable in bed. He is neurologically intact. Results & Data Vital Signs (Past 12 Hours) Vital Signs Temp Pulse Resp BP Pulse Ox O2 Del Method 06/29/23 07:43 36.5 C 65 16 151/80 H 98 Room Air
[2023-06-29] MEDS: NICOTINE 7 MG/24 HR TDSY TD SCH (11:15)
[2023-06-29] MEDS: LORazepam 1 MG TAB PO PRN ×3 (11:16→23:13)
--- NOTE | 2023-06-29 12:21 | Anesthesiology Consultation ---
Date of Service June 29, 2023 Assessment & Plan Chart Review Chart Review: Acceptable Risk for Surgery and Patient NOT seen in Pre Admission Testing Consults Requested none ASA ASA2 Proposed Anesthesia Anesthesia Type: General History Height/Weight Height: 5 ft 10 in Weight: 85 kg Allergies Allergy/AdvReac Type Severity Reaction Status Date / Time diphenhydramine AdvReac Mild makes him Unverified 06/25/23 19:36 [From Benadryl] want to jump out of skin Medications Home Medications Medication Instructions Recorded Confirmed Last Taken diazepam 10 mg tablet 10 mg PO 5XD PRN Spasms 06/25/23 06/26/23 Unknown gabapentin 600 mg tablet 600 mg PO DIRECTED 06/25/23 06/25/23 Unknown quetiapine 100 mg tablet 100 mg PO DAILY 06/25/23 06/25/23 Unknown quetiapine 50 mg tablet 50 mg PO PM 06/25/23 06/25/23 Unknown ropinirole 2 mg tablet 2 mg PO PM PRN Other 06/25/23 06/25/23 Unknown oxycodone 5 mg tablet 5 mg PO Q6H PRN pain #30 tabs 06/27/23 Unknown Active Medications Generic Name Dose Route Start Last Admin Trade Name Freq PRN Reason Stop Dose Admin Acetaminophen 1,000 mg 06/25/23 20:50 06/27/23 01:54 Acetaminophen 500 Mg Tab PO 07/25/23 20:49 1,000 mg Q8H PRN Administration MILD Pain Scale 1,2,3 & Pre PT Docusate Sodium 100 mg 06/27/23 11:30 06/29/23 07:27 Docusate Sodium 100 Mg Cap PO 07/27/23 11:29 100 mg BID [facility] Administration Gabapentin 600 mg 06/25/23 23:00 06/29/23 07:27 Gabapentin 600 Mg Tab PO 07/25/23 22:59 600 mg BID [facility] Administration Hydromorphone HCl 1 mg 06/27/23 08:48 06/29/23 11:16 Hydromorphone Inj 1 Mg/Ml Syringe IV 07/09/23 20:49 1 mg Q2H PRN Administration severe pain (scale 7-10) Lactated Ringer's 1,000 mls @ 75 mls/hr 06/25/23 20:50 06/29/23 05:43 Lr IV 07/25/23 20:49 75 mls/hr .[id number] [facility] Administration Lorazepam 0.5 mg 06/25/23 20:50 06/27/23 19:40 Lorazepam 2 Mg/1 Ml Vial IV 07/25/23 20:49 0.5 mg Q8H PRN Administration Sedation/Anxiety Lorazepam 1 mg 06/28/23 10:04 06/29/23 11:16 Lorazepam 1 Mg Tab PO 07/25/23 20:49 1 mg Q6 PRN Administration sedation/anxiety Nicotine 7 mg 06/29/23 10:30 06/29/23 11:15 Nicotine 7 Mg/24 Hr Tdsy TD 07/29/23 10:29 7 mg QAM [facility] Administration Oxycodone HCl 5 - 10 mg 06/25/23 20:50 06/29/23 07:27 Oxycodone Hcl Ir 5 Mg Tab (Immediate Release) PO 07/09/23 20:49 10 mg Q4H PRN Administration mod to severe pain Polyethylene Glycol 17 gm 06/27/23 21:00 06/29/23 07:26 Polyethylene (Miralax) 17 Gm Pack PO 07/27/23 20:59 17 gm TID [facility] Administration Quetiapine Fumarate 100 mg 06/26/23 09:00 06/29/23 07:27 Quetiapine Fumarate 100 Mg Tablet PO 07/26/23 08:59 100 mg DAILY [facility] Administration Quetiapine Fumarate 50 mg 06/25/23 22:55 06/28/23 21:15 Quetiapine Fumarate 25 Mg Tablet PO 07/25/23 22:54 50 mg PM [facility] Administration Ropinirole HCl 2 mg 06/25/23 22:54 06/25/23 23:44 Ropinirole Hcl 2 Mg Tablet PO 07/25/23 22:53 2 mg PM PRN Administration Other Simethicone 80 mg 06/28/23 18:01 06/28/23 18:58 Simethicone 80 Mg Chew PO 07/28/23 18:00 80 mg Q6H PRN Administration Flatulence Past Medical History + tobacco smoker;+ vapes Exercise / Class Metabolic Activity II 4-5 Yardwork/Stairs/Walk up hill Past Anesthesia History No Hx of Anesthesia Complications and No Family Hx of Anesthesia Complications History of PONV No Hx of PONV and No Hx of Motion Sickness Social History Smoking Status: Current every day smoker tobacco type: e-cigarettes Do You Dip or Chew Tobacco: No Hx Alcohol Use: Yes Alcohol type: beer alcohol intake frequency: a few times a week Hx Substance Use: No Physical Exam Vital Signs Last Vital Signs Temp 36.5 C 06/29/23 07:43 Pulse 65 06/29/23 07:43 Resp 16 06/29/23 07:43 BP 151/80 H 06/29/23 07:43 Pulse Ox 98 06/29/23 07:43 O2 Del Method Room Air 06/29/23 07:43 Testing Laboratory Results 06/27/23 06:28 06/27/23 06:28 Electrocardiogram Date: 06/26/23 Findings: + NSR @ (@ 65;poss. anter. infarct,age ?) Chest X-Ray Date: 06/26/23 Findings: + NAD
[2023-06-29] MEDS ORDERED: bisacodyL 10 MG SUPP PR PRN (15:05)
[2023-06-29] MEDS: QUEtiapine FUMARATE 25 MG TABLET PO SCH (21:01)
[2023-06-30] MEDS: oxyCODONE HCL IR 5 MG TAB (IMMEDIATE RELEASE) PO PRN ×5 (01:03→21:14)
[2023-06-30] MEDS: HYDROmorphone INJ 1 MG/ML SYRINGE IV PRN ×16 (03:52→22:34)
[2023-06-30] MEDS: LORazepam 1 MG TAB PO PRN ×4 (05:45→23:02)
[2023-06-30 06:23] LABS: Hematocrit (blood only) 41.2 % (42.0-52.0); Hemoglobin 12.9 g/dl (14.0-18.0); Mean Corpuscular Hgb Conc 31.3 g/dL (32.0-36.0); Mean Corpuscular Volume 82.9 fL (80.0-100.0); Mean Platelet Volume 9.8 fL (9.4-12.4); Platelet Count 170 K/uL (130-400); RDW Coefficient of Variation 17.1 % (11.5-14.5); RDW Standard Deviation 51.5 fL (36.4-46.3); Red Blood Count 4.97 M/uL (4.70-6.10); White Blood Count 5.87 K/ul (4.8-10.8)
[2023-06-30 06:44] LABS: BUN Creatinine Ratio 16.5 (10-20); Calcium 8.5 mg/dl (8.6-10.3); Creatinine Clr Calc Pharmacy 96.2 ml/min; Est GFR (African American) 106.6 ml/min; Est GFR (Non-African American) 91.9 ml/min; Magnesium 2.1 mg/dl (1.7-2.4); Potassium 4.4 mmol/L (3.5-5.1)
[2023-06-30] MEDS: LACTATED RINGER'S 1,000 ML IV SCH ×2 (07:03→21:14)
[2023-06-30] MEDS: POLYETHYLENE (MIRALAX) 17 GM PACK PO SCH ×3 (07:36→20:10)
[2023-06-30] MEDS: QUEtiapine FUMARATE 100 MG TABLET PO SCH (07:36)
[2023-06-30] MEDS: DOCUSATE SODIUM 100 MG CAP PO SCH ×2 (07:36→20:10)
[2023-06-30] MEDS: GABAPENTIN 600 MG TAB PO SCH ×2 (07:36→20:10)
[2023-06-30] MEDS: NICOTINE 7 MG/24 HR TDSY TD SCH (07:37)
--- NOTE | 2023-06-30 10:20 | Hospitalist Progress Note ---
Date of Service June 30, 2023 Assessment & Plan (1) Lumbar radiculopathy: Plan: 47-year-old male presents with severe back pain lumbar radiculopathy and ambulatory dysfunction Severe back pain Ambulatory dysfunction Repeated MRI inpt - 1. Moderate disc degeneration at L2-3 and L3-4 with mild disc degeneration at L1-L2, L4-5 and L5-S1 with annular disc bulging or disc extrusion flattening the ventral thecal sac and causing a mild subarticular recess stenosis at L3-4 and L5-S1 and a moderate right subarticular recess stenosis at L2-3 with mild impingement of the transiting right L3 nerve root. 2. There is a moderately severe spinal canal stenosis at L3-4. 3. There is mild bilateral L3-4, and mild bilateral L5-S1 neuroforaminal stenosis without evidence of neural impingement. 4. There is minimal to mild facet arthropathy with mild synovitis. 5. No evidence of fracture, infection, tumor or arachnoiditis. Pain control Admitted under orthopedics service - plan for surgery today (06/30/2023) Preop chest x-ray and EKG obtained and reviewed. Pt is quite physically active (prior to having severe back pain), and never had chest pain or shortness of breath w/ exercise. Acceptable for surgery. Constipation Bowel regimen w/ miralax, colace, dulcolax ordered added milk of magnesia Pt is now having BMs DVT prophylaxis and disposition as per orthopedics Admission and Anticipated Discharge Date Admission Date: June 25, 2023 Subjective Pt seen in follow up of back pain, plan for lumbar spine surgery later today He is laying in bed in NAD, resting Per RN - continues to ask for pain meds around the clock Pt is having BMs Pt's present at the bedside No chest pain, or shortness of breath Review of Systems Review of Systems: All systems reviewed & are unremarkable except as noted in Subjective Physical Exam Physical Exam: General- WD/WN M in NAD Head- atraumatic Eyes- EOMI, Neck- supple, no JVD, Lungs- clear to auscultation b/l Heart- regular rate and rhythm Abdomen- normal bowel sounds, soft, nontender, no distension Extremities- no pretibial edema, no erythema seen Neuro- alert, oriented x 3, EOMI; no facial palsy; no dysarthria; painful lower extremity movements Skin- warm & dry, multiple tattoos Results & Data Results & Data Vital Signs (Past 12 Hours) Vital Signs Temp Pulse Resp BP BP Pulse Ox O2 Del Method 06/30/23 07:03 36.8 C 66 17 155/92 H 95 Room Air 06/29/23 23:45 36.5 C 68 16 172/82 H 98 Room Air Laboratory Results 06/30/23 06/30/23 Range/Units 05:51 05:51 WBC 5.87 (4.8-10.8) K/ul RBC 4.97 (4.70-6.10) M/uL Hgb 12.9 L (14.0-18.0) g/dl Hct 41.2 L (42.0-52.0) % MCV 82.9 (80.0-100.0) fL MCH 26.0 (25.0-34.0) pg MCHC 31.3 L (32.0-36.0) g/dL RDW Std Deviation 51.5 H (36.4-46.3) fL RDW Coeff of Dhaval 17.1 H (11.5-14.5) % Plt Count 170 (130-400) K/uL MPV 9.8 (9.4-12.4) fL Sodium 138 (136-145) mmol/L Potassium 4.4 (3.5-5.1) mmol/L Chloride 98 (98-107) mmol/L Carbon Dioxide 38 H (21-32) mmol/L Anion Gap 2 L (3-11) BUN 16 (6-23) mg/dl Creatinine 0.97 (0.6-1.4) mg/dl Est Cr Clr Drug Dosing 96.2 ml/min Est GFR ( Amer) 106.6 ml/min Est GFR (Non-Af Amer) 91.9 ml/min BUN/Creatinine Ratio 16.5 (10-20) Glucose 117 H (70-99(Fasting)) mg/dl Calcium 8.5 L (8.6-10.3) mg/dl Magnesium 2.1 (1.7-2.4) mg/dl Medications Administered Current Inpatient Medications Acetaminophen (Acetaminophen 500 Mg Tab) 1,000 mg PO Q8H PRN PRN Reason: MILD Pain Scale 1,2,3 & Pre PT Stop: 07/25/23 20:49 Last Admin: 06/27/23 01:54 Dose: 1,000 mg Bisacodyl (Bisacodyl 10 Mg Supp) 10 mg [place] DAILY PRN PRN Reason: Constipation Stop: 07/29/23 15:04 Last Admin: 06/29/23 15:33 Dose: 10 mg Docusate Sodium (Docusate Sodium 100 Mg Cap) 100 mg PO BID [facility] Stop: 07/27/23 11:29 Last Admin: 06/30/23 07:36 Dose: 100 mg Gabapentin (Gabapentin 600 Mg Tab) 600 mg PO BID [facility] Stop: 07/25/23 22:59 Last Admin: 06/30/23 07:36 Dose: 600 mg Hydromorphone HCl (Hydromorphone Inj 0.5 Mg/0.5 Ml Syr) 0.5 mg IV Q3H PRN PRN Reason: MOD pain (scale 4-6) & Pre PT Stop: 07/09/23 20:49 Hydromorphone HCl (Hydromorphone Inj 1 Mg/Ml Syringe) 1 mg IV Q2H PRN PRN Reason: severe pain (scale 7-10) Stop: 07/09/23 20:49 Last Admin: 06/30/23 09:39 Dose: 1 mg Lactated Ringer's (Lr) 1,000 mls @ 75 mls/hr IV .[id number] [facility] Stop: 07/25/23 20:49 Last Admin: 06/30/23 07:03 Dose: 75 mls/hr Promethazine HCl 12.5 mg/ (Sodium Chloride) 50.5 mls @ 202 mls/hr IV Q6H PRN PRN Reason: Nausea &/or Vomiting Stop: 07/25/23 20:49 Lorazepam (Lorazepam 2 Mg/1 Ml Vial) 0.5 mg IV Q8H PRN PRN Reason: Sedation/Anxiety Stop: 07/25/23 20:49 Last Admin: 06/27/23 19:40 Dose: 0.5 mg Lorazepam (Lorazepam 1 Mg Tab) 1 mg PO Q6 PRN PRN Reason: sedation/anxiety Stop: 07/25/23 20:49 Last Admin: 06/30/23 05:45 Dose: 1 mg Metoclopramide HCl (Metoclopramide Hcl Inj 5 Mg/Ml 2 Ml Vial) 10 mg IV Q6H PRN PRN Reason: Nausea &/or Vomiting Stop: 07/25/23 20:49 Miscellaneous (Remove Nicoderm Patch) 1 each N/A DAILY@0859 [facility] Stop: 07/30/23 08:58 Last Admin: 06/30/23 07:37 Dose: 1 each Naloxone HCl (Naloxone Hcl 0.4 Mg/1 Ml Vial/Carp) 0.1 mg IV Q5M PRN PRN Reason: Oversedation/respiratory dep Stop: 07/25/23 20:49 Nicotine (Nicotine 7 Mg/24 Hr Tdsy) 7 mg TD QAM [facility] Stop: 07/29/23 10:29 Last Admin: 06/30/23 07:37 Dose: 7 mg Ondansetron HCl (Ondansetron Inj 2 Mg/Ml 2 Ml Vial) 4 mg IV Q6H PRN PRN Reason: Nausea &/or Vomiting Stop: 07/25/23 20:49 Ondansetron HCl (Ondansetron 4 Mg Od Tab) 4 mg PO Q6H PRN PRN Reason: Nausea Stop: 07/25/23 20:49 Oxycodone HCl (Oxycodone Hcl Ir 5 Mg Tab (Immediate Release)) 5 - 10 mg PO Q4H PRN PRN Reason: mod to severe pain Stop: 07/09/23 20:49 Last Admin: 06/30/23 08:35 Dose: 10 mg Polyethylene Glycol (Polyethylene (Miralax) 17 Gm Pack) 17 gm PO TID [facility] Stop: 07/27/23 20:59 Last Admin: 06/30/23 07:36 Dose: 17 gm Quetiapine Fumarate (Quetiapine Fumarate 100 Mg Tablet) 100 mg PO DAILY [facility] Stop: 07/26/23 08:59 Last Admin: 06/30/23 07:36 Dose: 100 mg Quetiapine Fumarate (Quetiapine Fumarate 25 Mg Tablet) 50 mg PO PM [facility] Stop: 07/25/23 22:54 Last Admin: 06/29/23 21:01 Dose: 50 mg Ropinirole HCl (Ropinirole Hcl 2 Mg Tablet) 2 mg PO PM PRN PRN Reason: Other Stop: 07/25/23 22:53 Last Admin: 06/25/23 23:44 Dose: 2 mg Simethicone (Simethicone 80 Mg Chew) 80 mg PO Q6H PRN PRN Reason: Flatulence Stop: 07/28/23 18:00 Last Admin: 06/28/23 18:58 Dose: 80 mg
--- NOTE | 2023-06-30 12:41 | History & Physical Bridge Note ---
Date of Service June 30, 2023 History & Physical Bridge Note I have examined the patient, reviewed the History & Physical and in the interval since the performance of the History & Physical I have noted the following changes of clinical significance: no changes noted Decompression and fusion L2-L3 L3-L4.
[2023-06-30] MEDS ORDERED: PROMETHAZINE HCL 12.5 MG in SODIUM CHLORIDE 0.9% 50 ML IV PRN (12:45)
[2023-06-30] MEDS ORDERED: ATROPINE SULFATE 0.1 MG/ML 10ML SYR IV PRN (12:45)
[2023-06-30] MEDS ORDERED: ceFAZolin 330 MG/ML 1 GM VIAL ONE (12:46)
[2023-06-30] MEDS ORDERED: BUPIVACAINE/EPINEPHRINE 0.25% 1:200,000 30 ML VIAL ONE (12:46)
[2023-06-30] MEDS ORDERED: ceFAZolin 2,000 MG/15 ML IV PUSH IV ONE (12:47)
[2023-06-30] MEDS ORDERED: ceFAZolin 2000MG 2,000 MG/15 ML SYR IV ONE (12:57)
[2023-06-30] MEDS ORDERED: FLOSEAL HEMOSTATIC MATRIX 10ML TOP ONE (14:05)
--- NOTE | 2023-06-30 15:04 | Operative Report ---
Post Operative Report Pre & Post Diagnosis Operation Date: 06/30/23 08:20 Pre-Op Diagnosis: Neurogenic claudication due to lumbar spinal stenosis Post-Op Diagnosis: Neurogenic claudication due to lumbar spinal stenosis I identified the patient and participated in the time-out.: Yes Procedure Operation Date: 06/30/23 08:20 Actual Procedures 1. Lumbar decompression bilateral medial facetectomies and foraminotomies L2-3 and L3-L4. #2 posterior spinal fusion L2-L3 L3-L4. #3 placed posterior instrumentation L2-L3 L3-L4. #4 interbody fusion L2-L3 L3-L4. #5 placement of Spira 12 x 26 mm cage at L2-L3 and 13 x 26 mm cage at L3-L4. #6 placement locally harvested morselized autograft in the posterior gutters. #7 placement of I factor in the body space combined with V toss in the posterior lateral gutters. Surgeon Nadir Elkins, Sales Facilitator Evelyn Herring Estimated Blood Loss 150 Findings Consistent with Post-Op Diagnosis Specimens none Indications This is a 47 male who presents with marked decline in status and severe spinal stenosis and sent here for urgent decompression fusion. Description of Procedure Patient was met with identified informed consent obtained. Patient was then taken to the operative suite underwent patient placed in a prone position the [place] table top Piero frame. All bony prominences well-padded eyes inspected to ensure no external pressure placed upon the. This point the lumbar spine was prepped and draped in a sterile fashion. Sharp dissection with the assistance of Bovie cautery performed down to and exposing the lamina and transverse processes of L2-L3-L4 bilaterally. From caudal cephalad fashion complete laminectomy of L3 and laminectomy of L2 was performed including bilateral medial facetectomies and foraminotomies addressing severe spinal stenosis. Pedicle screws then placed in L2-L3-L4 bilaterally with assistance of fluoroscopy and appropriately sized tamika placed. By way of a trans foraminal approach on the right a complete discectomy of L3-L4 was performed endplates curetted to subcortical bleeding bone and a 13 x 26 mm Spira cage with I factor tapped in position. Then proceeded L2-L3 and again by way the transforaminal approach and right complete discectomy performed endplates curetted to subcortically bone and a 12 x 26 mm Spira cage with I factor tapped the position. The rods were then locked in final position bilaterally. The transverse processes of L2-L3-L4 burred to subcortically bone. I factor combined by the test and locally harvested morselized autograft was placed in the posterior lateral gutters. 15 round NATALIA drain inserted. The incision was then closed with 1 Vicryl the fascia 2-0 Vicryl subcutaneously and 4 Monocryl for final skin closure. Steri-Strips sterile dressing placed. Patient awakened taken to PACU in stable condition. Please note spinal cord monitoring was utilized at the procedure no changes noted. Lastly Evelyn Herring was present at the entire surgeon while the patient positioning complex course of the surgery and final skin closure. I attest to the content of the Intraoperative Record and any orders documented therein. Any exceptions are noted below.
--- NOTE | 2023-06-30 15:29 | Fluoroscopy Report ---
FL lumbar spine 2-3V CLINICAL HISTORY: L2-L4 FUSION COMPARISON STUDY: None. FLUOROSCOPY TIME: 33 seconds FLUOROSCOPY IMAGES: 2 Ka,r: 26.7 mGy FINDINGS: Posterior decompression and fusion from L2 through L4 with pedicle screws and rods. Hardwar e appears intact. Disc spacers are in place. IMPRESSION: Fluoroscopic assistance as above. ACT 112: Negative or not required by law. Electronically signed by: Cody Neal M.D. 06/30/2023 3:28 PM
[2023-06-30] MEDS ORDERED: HYDROmorphone INJ 2 MG/ML SYR/VIAL IV PRN (16:07)
[2023-06-30] MEDS: ACETAMINOPHEN 500 MG TAB PO PRN (17:15)
--- NOTE | 2023-06-30 18:19 | Anesthesiology Progress Note ---
Date of Service June 30, 2023 Anesthesia Post Procedure Vital Signs Vital Signs: Temp Pulse Pulse Resp BP BP Pulse Ox 06/30/23 17:45 97.9 F 92 H 16 156/89 H 97 06/30/23 17:16 97.5 F L 99 H 16 166/91 H 95 06/30/23 16:45 98.4 F 97 H 16 159/93 H 97 06/30/23 16:25 81 15 146/68 H 94 06/30/23 16:15 98.6 F 80 16 155/90 H 94 06/30/23 16:05 95 H 17 163/96 H 97 06/30/23 15:55 96 H 17 149/102 H 95 06/30/23 15:45 80 12 160/88 H 99 06/30/23 15:35 89 12 157/85 H 94 06/30/23 15:26 98.6 F 101 H 12 169/82 H 96 06/30/23 12:39 98.4 F 78 20 160/107 H 98 06/30/23 07:03 98.2 F 66 17 155/92 H 95 06/29/23 21:00 06/29/23 21:00 06/29/23 23:45 97.7 F 68 16 172/82 H 98 Pulse Ox O2 Del Method O2 Del Method O2 Flow Rate 06/30/23 17:45 Nasal Cannula 3 06/30/23 17:16 Nasal Cannula 3 06/30/23 16:45 Nasal Cannula 3 06/30/23 16:25 Nasal Cannula 3 06/30/23 16:15 Nasal Cannula 3 06/30/23 16:05 Nasal Cannula 3 06/30/23 15:55 Nasal Cannula 3 06/30/23 15:45 Nasal Cannula 3 06/30/23 15:35 Nasal Cannula 3 06/30/23 15:26 Nasal Cannula 3 06/30/23 12:39 Room Air 06/30/23 07:03 Room Air 06/29/23 21:00 95 Room Air 06/29/23 21:00 Room Air 06/29/23 23:45 Room Air Pain Intensity Back: Pain Intensity: 9 Transfer of Care Handoff Completed per policy Notes Mental Status: alert / awake / arousable and participated in evaluation Patient Amnestic to Procedure: Yes Nausea / Vomiting: adequately controlled Pain: adequately controlled and improving with treatment Airway Patency, RR, SpO2: stable & adequate BP & HR: stable & adequate Hydration State: stable & adequate Anesthetic Complications: no major complications apparent and Pt Satisfied with anesthetic care
[2023-06-30] MEDS: QUEtiapine FUMARATE 25 MG TABLET PO SCH (20:10)
[2023-06-30] MEDS: dexAMETHasone 6 MG in SYRINGE 0 ML IV SCH (21:16)
[2023-06-30] MEDS ORDERED: DEXAMETHASONE SOD INJ 4 MG/ML VIAL IV SCH (22:00)
[2023-07-01] MEDS: HYDROmorphone INJ 1 MG/ML SYRINGE IV PRN ×10 (00:33→22:42)
[2023-07-01] MEDS: oxyCODONE HCL IR 5 MG TAB (IMMEDIATE RELEASE) PO PRN ×5 (01:22→19:51)
[2023-07-01] MEDS: LORazepam 1 MG TAB PO PRN ×3 (05:06→17:55)
[2023-07-01] MEDS: dexAMETHasone 6 MG in SYRINGE 0 ML IV SCH ×3 (05:58→22:42)
--- NOTE | 2023-07-01 07:42 | Hospitalist Progress Note ---
Date of Service July 01, 2023 Assessment & Plan (1) Lumbar radiculopathy: Plan: 47-year-old male presents with severe back pain lumbar radiculopathy and ambulatory dysfunction Severe back pain Ambulatory dysfunction Repeated MRI inpt - 1. Moderate disc degeneration at L2-3 and L3-4 with mild disc degeneration at L1-L2, L4-5 and L5-S1 with annular disc bulging or disc extrusion flattening the ventral thecal sac and causing a mild subarticular recess stenosis at L3-4 and L5-S1 and a moderate right subarticular recess stenosis at L2-3 with mild impingement of the transiting right L3 nerve root. 2. There is a moderately severe spinal canal stenosis at L3-4. 3. There is mild bilateral L3-4, and mild bilateral L5-S1 neuroforaminal stenosis without evidence of neural impingement. 4. There is minimal to mild facet arthropathy with mild synovitis. 5. No evidence of fracture, infection, tumor or arachnoiditis. Pain control Admitted under orthopedics service - now s/p lumar spine surgery (06/30/2023) Tolerating well, still reports pain but it feels different. Constipation Bowel regimen w/ miralax, colace, dulcolax ordered added milk of magnesia Pt is now having BMs DVT prophylaxis and disposition as per orthopedics Admission and Anticipated Discharge Date Admission Date: June 25, 2023 Subjective Pt seen in follow up of back pain, now s/p lumbar spine surgery yesterday He is laying in bed in NAD Reports still having significant pain "but different" No chest pain, or shortness of breath Pt's present at the bedside and discussed with- says pt was able to stand up, and just now Grant catheter was removed Review of Systems Review of Systems: All systems reviewed & are unremarkable except as noted in Subjective Physical Exam Physical Exam: General- WD/WN M in NAD Head- atraumatic Eyes- EOMI, Neck- supple, no JVD, Lungs- clear to auscultation b/l Heart- regular rate and rhythm Abdomen- normal bowel sounds, soft, nontender, no distension Extremities- no pretibial edema, no erythema seen Neuro- alert, oriented x 3, EOMI; no facial palsy; no dysarthria; painful lower extremity movements Skin- warm & dry, multiple tattoos Results & Data Results & Data Vital Signs (Past 12 Hours) Vital Signs Temp Pulse Resp BP BP Pulse Ox Pulse Ox 07/01/23 07:16 36.5 C 75 18 125/74 94 07/01/23 03:45 36.7 C 88 18 129/77 96 06/30/23 20:10 06/30/23 20:10 94 06/30/23 23:13 36.5 C 85 18 144/71 H 94 06/30/23 19:44 36.8 C 90 18 180/101 H 100 O2 Del Method O2 Del Method 07/01/23 07:16 Room Air 07/01/23 03:45 Room Air 06/30/23 20:10 Room Air 06/30/23 20:10 Room Air 06/30/23 23:13 Room Air 06/30/23 19:44 Room Air Laboratory Results 07/01/23 07/01/23 Range/Units 08:15 08:15 WBC 11.10 H (4.8-10.8) K/ul RBC 4.75 (4.70-6.10) M/uL Hgb 12.3 L (14.0-18.0) g/dl Hct 38.3 L (42.0-52.0) % MCV 80.6 (80.0-100.0) fL MCH 25.9 (25.0-34.0) pg MCHC 32.1 (32.0-36.0) g/dL RDW Std Deviation 47.6 H (36.4-46.3) fL RDW Coeff of Dhaval 16.1 H (11.5-14.5) % Plt Count 182 (130-400) K/uL MPV 10.1 (9.4-12.4) fL Sodium 136 (136-145) mmol/L Potassium 4.7 (3.5-5.1) mmol/L Chloride 98 (98-107) mmol/L Carbon Dioxide 34 H (21-32) mmol/L Anion Gap 4 (3-11) BUN 21 (6-23) mg/dl Creatinine 0.88 (0.6-1.4) mg/dl Est Cr Clr Drug Dosing 106.0 ml/min Est GFR ( Amer) 117.7 ml/min Est GFR (Non-Af Amer) 101.6 ml/min BUN/Creatinine Ratio 23.9 H (10-20) Glucose 180 H (70-99(Fasting)) mg/dl Calcium 8.4 L (8.6-10.3) mg/dl Magnesium 2.2 (1.7-2.4) mg/dl Medications Administered Current Inpatient Medications Acetaminophen (Acetaminophen 500 Mg Tab) 1,000 mg PO Q8H PRN PRN Reason: MILD Pain Scale 1,2,3 & Pre PT Stop: 07/25/23 20:49 Last Admin: 06/30/23 17:15 Dose: 1,000 mg Bisacodyl (Bisacodyl 10 Mg Supp) 10 mg [place] DAILY PRN PRN Reason: Constipation Stop: 07/29/23 15:04 Last Admin: 06/29/23 15:33 Dose: 10 mg Docusate Sodium (Docusate Sodium 100 Mg Cap) 100 mg PO BID [facility] Stop: 07/27/23 11:29 Last Admin: 06/30/23 20:10 Dose: Not Given Gabapentin (Gabapentin 600 Mg Tab) 600 mg PO BID [facility] Stop: 07/25/23 22:59 Last Admin: 06/30/23 20:10 Dose: 600 mg Hydromorphone HCl (Hydromorphone Inj 0.5 Mg/0.5 Ml Syr) 0.5 mg IV Q3H PRN PRN Reason: MOD pain (scale 4-6) & Pre PT Stop: 07/09/23 20:49 Hydromorphone HCl (Hydromorphone Inj 1 Mg/Ml Syringe) 1 mg IV Q2H PRN PRN Reason: severe pain (scale 7-10) Stop: 07/09/23 20:49 Last Admin: 07/01/23 07:38 Dose: 1 mg Lactated Ringer's (Lr) 1,000 mls @ 75 mls/hr IV .[id number] [facility] Stop: 07/25/23 20:49 Last Admin: 06/30/23 21:14 Dose: 75 mls/hr Promethazine HCl 12.5 mg/ (Sodium Chloride) 50.5 mls @ 202 mls/hr IV Q6H PRN PRN Reason: Nausea &/or Vomiting Stop: 07/25/23 20:49 Dexamethasone 6 mg/ Syringe 1.5 mls @ 1 mls/min IV Q8H [facility] Stop: 07/30/23 21:59 Last Admin: 07/01/23 05:58 Dose: 1 mls/min Lorazepam (Lorazepam 2 Mg/1 Ml Vial) 0.5 mg IV Q8H PRN PRN Reason: Sedation/Anxiety Stop: 07/25/23 20:49 Last Admin: 06/27/23 19:40 Dose: 0.5 mg Lorazepam (Lorazepam 1 Mg Tab) 1 mg PO Q6 PRN PRN Reason: sedation/anxiety Stop: 07/25/23 20:49 Last Admin: 07/01/23 05:06 Dose: 1 mg Metoclopramide HCl (Metoclopramide Hcl Inj 5 Mg/Ml 2 Ml Vial) 10 mg IV Q6H PRN PRN Reason: Nausea &/or Vomiting Stop: 07/25/23 20:49 Miscellaneous (Remove Nicoderm Patch) 1 each N/A DAILY@0859 [facility] Stop: 07/30/23 08:58 Last Admin: 06/30/23 07:37 Dose: 1 each Naloxone HCl (Naloxone Hcl 0.4 Mg/1 Ml Vial/Carp) 0.1 mg IV Q5M PRN PRN Reason: Oversedation/respiratory dep Stop: 07/25/23 20:49 Nicotine (Nicotine 7 Mg/24 Hr Tdsy) 7 mg TD QAM [facility] Stop: 07/29/23 10:29 Last Admin: 06/30/23 07:37 Dose: 7 mg Ondansetron HCl (Ondansetron Inj 2 Mg/Ml 2 Ml Vial) 4 mg IV Q6H PRN PRN Reason: Nausea &/or Vomiting Stop: 07/25/23 20:49 Ondansetron HCl (Ondansetron 4 Mg Od Tab) 4 mg PO Q6H PRN PRN Reason: Nausea Stop: 07/25/23 20:49 Oxycodone HCl (Oxycodone Hcl Ir 5 Mg Tab (Immediate Release)) 5 - 10 mg PO Q4H PRN PRN Reason: mod to severe pain Stop: 07/09/23 20:49 Last Admin: 07/01/23 05:59 Dose: 10 mg Polyethylene Glycol (Polyethylene (Miralax) 17 Gm Pack) 17 gm PO TID [facility] Stop: 07/27/23 20:59 Last Admin: 06/30/23 20:10 Dose: Not Given Quetiapine Fumarate (Quetiapine Fumarate 100 Mg Tablet) 100 mg PO DAILY [facility] Stop: 07/26/23 08:59 Last Admin: 06/30/23 07:36 Dose: 100 mg Quetiapine Fumarate (Quetiapine Fumarate 25 Mg Tablet) 50 mg PO PM [facility] Stop: 07/25/23 22:54 Last Admin: 06/30/23 20:10 Dose: 50 mg Ropinirole HCl (Ropinirole Hcl 2 Mg Tablet) 2 mg PO PM PRN PRN Reason: Other Stop: 07/25/23 22:53 Last Admin: 06/25/23 23:44 Dose: 2 mg Simethicone (Simethicone 80 Mg Chew) 80 mg PO Q6H PRN PRN Reason: Flatulence Stop: 07/28/23 18:00 Last Admin: 06/28/23 18:58 Dose: 80 mg
[2023-07-01] MEDS: NICOTINE 7 MG/24 HR TDSY TD SCH (08:12)
[2023-07-01] MEDS: QUEtiapine FUMARATE 100 MG TABLET PO SCH (08:12)
[2023-07-01] MEDS: GABAPENTIN 600 MG TAB PO SCH ×2 (08:12→20:43)
[2023-07-01] MEDS: DOCUSATE SODIUM 100 MG CAP PO SCH ×2 (08:13→20:43)
[2023-07-01] MEDS: POLYETHYLENE (MIRALAX) 17 GM PACK PO SCH ×3 (08:14→20:43)
[2023-07-01 08:44] LABS: Hematocrit (blood only) 38.3 % (42.0-52.0); Hemoglobin 12.3 g/dl (14.0-18.0); Mean Corpuscular Hemoglobin 25.9 pg (25.0-34.0); Mean Corpuscular Hgb Conc 32.1 g/dL (32.0-36.0); Mean Corpuscular Volume 80.6 fL (80.0-100.0); Mean Platelet Volume 10.1 fL (9.4-12.4); Platelet Count 182 K/uL (130-400); RDW Coefficient of Variation 16.1 % (11.5-14.5); RDW Standard Deviation 47.6 fL (36.4-46.3); Red Blood Count 4.75 M/uL (4.70-6.10)
[2023-07-01 09:07] LABS: BUN Creatinine Ratio 23.9 (10-20); Calcium 8.4 mg/dl (8.6-10.3); Est GFR (African American) 117.7 ml/min; Est GFR (Non-African American) 101.6 ml/min; Magnesium 2.2 mg/dl (1.7-2.4); Potassium 4.7 mmol/L (3.5-5.1)
--- NOTE | 2023-07-01 10:11 | Orthopedic Progress Note ---
Date of Service July 01, 2023 Assessment & Plan (1) Neurogenic claudication due to lumbar spinal stenosis: Plan: At this time initiate physical therapy monitor NATALIA output hopefully discharge home in the next few days. Admission and Anticipated Discharge Date Admission Date: June 25, 2023 Subjective Patient complaining of back pain. He feels his leg symptoms are improved. Physical Exam Physical Exam: Patient is currently seen but bed. Is constricted testing. Results & Data Vital Signs (Past 12 Hours) Vital Signs Temp Pulse Resp BP BP Pulse Ox O2 Del Method 07/01/23 07:16 36.5 C 75 18 125/74 94 Room Air 07/01/23 03:45 36.7 C 88 18 129/77 96 Room Air 06/30/23 23:13 36.5 C 85 18 144/71 H 94 Room Air
[2023-07-01] MEDS: LACTATED RINGER'S 1,000 ML IV SCH (10:30)
[2023-07-01] MEDS: ACETAMINOPHEN 500 MG TAB PO PRN (14:09)
[2023-07-01] MEDS: SIMETHICONE 80 MG CHEW PO PRN (16:55)
[2023-07-01] MEDS: QUEtiapine FUMARATE 25 MG TABLET PO SCH (20:43)
[2023-07-01] MEDS: rOPINIRole HCL 2 MG TABLET PO PRN (20:49)
[2023-07-02] MEDS: LORazepam 1 MG TAB PO PRN ×4 (01:09→20:04)
[2023-07-02] MEDS: oxyCODONE HCL IR 5 MG TAB (IMMEDIATE RELEASE) PO PRN ×6 (01:10→22:13)
[2023-07-02] MEDS: HYDROmorphone INJ 1 MG/ML SYRINGE IV PRN ×11 (02:01→23:26)
[2023-07-02] MEDS: dexAMETHasone 6 MG in SYRINGE 0 ML IV SCH ×3 (05:13→21:42)
[2023-07-02] MEDS: GABAPENTIN 600 MG TAB PO SCH ×2 (07:43→21:41)
[2023-07-02] MEDS: DOCUSATE SODIUM 100 MG CAP PO SCH ×2 (07:43→21:37)
[2023-07-02 07:44] LABS: Hematocrit (blood only) 35.7 % (42.0-52.0); Hemoglobin 11.7 g/dl (14.0-18.0); Mean Corpuscular Hemoglobin 26.1 pg (25.0-34.0); Mean Corpuscular Hgb Conc 32.8 g/dL (32.0-36.0); Mean Corpuscular Volume 79.5 fL (80.0-100.0); Mean Platelet Volume 10.3 fL (9.4-12.4); Platelet Count 182 K/uL (130-400); RDW Coefficient of Variation 16.4 % (11.5-14.5); RDW Standard Deviation 47.1 fL (36.4-46.3); Red Blood Count 4.49 M/uL (4.70-6.10); White Blood Count 10.45 K/ul (4.8-10.8)
[2023-07-02] MEDS: POLYETHYLENE (MIRALAX) 17 GM PACK PO SCH ×3 (07:45→21:37)
[2023-07-02] MEDS: NICOTINE 7 MG/24 HR TDSY TD SCH (07:45)
[2023-07-02 08:03] LABS: Calcium 8.4 mg/dl (8.6-10.3); Creatinine Clr Calc Pharmacy 126.1 ml/min; Est GFR (African American) 126.4 ml/min; Est GFR (Non-African American) 109.1 ml/min; Potassium 4.7 mmol/L (3.5-5.1)
[2023-07-02] MEDS: QUEtiapine FUMARATE 100 MG TABLET PO SCH (08:43)
--- NOTE | 2023-07-02 12:15 | Orthopedic Progress Note ---
Date of Service July 02, 2023 Assessment & Plan (1) Neurogenic claudication due to lumbar spinal stenosis: Plan: At this time continue physical therapy monitor NATALIA output anticipate discharge home tomorrow. Admission and Anticipated Discharge Date Admission Date: June 25, 2023 Subjective Back pain controlled leg pain improved Physical Exam Physical Exam: Patient is up and ambulating appears comfortable. Has good strength testing. Results & Data Vital Signs (Past 12 Hours) Vital Signs Temp Pulse Resp BP Pulse Ox Pulse Ox O2 Del Method 07/02/23 07:37 36.5 C 73 18 146/79 H 96 Room Air 07/02/23 02:00 96 O2 Del Method 07/02/23 07:37 07/02/23 02:00 Room Air
--- NOTE | 2023-07-02 20:53 | Hospitalist Progress Note ---
Date of Service July 02, 2023 Assessment & Plan (1) Lumbar radiculopathy: Plan: 47-year-old male presents with severe back pain lumbar radiculopathy and ambulatory dysfunction Severe back pain Ambulatory dysfunction Repeated MRI inpt - 1. Moderate disc degeneration at L2-3 and L3-4 with mild disc degeneration at L1-L2, L4-5 and L5-S1 with annular disc bulging or disc extrusion flattening the ventral thecal sac and causing a mild subarticular recess stenosis at L3-4 and L5-S1 and a moderate right subarticular recess stenosis at L2-3 with mild impingement of the transiting right L3 nerve root. 2. There is a moderately severe spinal canal stenosis at L3-4. 3. There is mild bilateral L3-4, and mild bilateral L5-S1 neuroforaminal stenosis without evidence of neural impingement. 4. There is minimal to mild facet arthropathy with mild synovitis. 5. No evidence of fracture, infection, tumor or arachnoiditis. Pain control Admitted under orthopedics service - now s/p lumar spine surgery (06/30/2023) Tolerating well, still reports pain but it feels different. Constipation Bowel regimen w/ miralax, colace, dulcolax ordered added milk of magnesia Pt is now having BMs DVT prophylaxis and disposition as per orthopedics Admission and Anticipated Discharge Date Admission Date: June 25, 2023 Results & Data Results & Data Vital Signs (Past 12 Hours) Vital Signs Temp Resp BP Pulse Ox O2 Del Method 07/02/23 15:12 36.5 C 18 148/86 H 95 Room Air
[2023-07-02] MEDS: QUEtiapine FUMARATE 25 MG TABLET PO SCH (21:41)
[2023-07-02] MEDS: rOPINIRole HCL 2 MG TABLET PO PRN (21:42)
[2023-07-03] MEDS: HYDROmorphone INJ 1 MG/ML SYRINGE IV PRN ×5 (01:32→10:20)
[2023-07-03] MEDS: oxyCODONE HCL IR 5 MG TAB (IMMEDIATE RELEASE) PO PRN ×2 (05:17→08:57)
[2023-07-03] MEDS: dexAMETHasone 6 MG in SYRINGE 0 ML IV SCH (05:17)
[2023-07-03] MEDS: NICOTINE 7 MG/24 HR TDSY TD SCH (08:03)
[2023-07-03] MEDS: POLYETHYLENE (MIRALAX) 17 GM PACK PO SCH (08:04)
[2023-07-03] MEDS: DOCUSATE SODIUM 100 MG CAP PO SCH (08:04)
[2023-07-03] MEDS: GABAPENTIN 600 MG TAB PO SCH (08:05)
[2023-07-03] MEDS: QUEtiapine FUMARATE 100 MG TABLET PO SCH (08:05)
[2023-07-03] MEDS: ACETAMINOPHEN 500 MG TAB PO PRN (08:23)
--- NOTE | 2023-07-03 08:31 | Discharge Summary ---
Date of Service July 03, 2023 Admission HPI Per Admitting Provider This is a 47-year-old male who presents with marked decline in status. He is struggling with severe lumbosacral back pain rating down the posterior thighs. Markedly limits his ability to stand and ambulate. He is having significant issues with urinary retention. He describes breakaway weakness secondary to pain. He is scheduled for surgery towards the end of this month. Principal Diagnosis Lumbar spinal stenosis with neurogenic claudication Discharge Data Allergies Allergy/AdvReac Type Severity Reaction Status Date / Time diphenhydramine AdvReac Mild makes him Unverified 06/25/23 19:36 [From Benadryl] want to jump out of skin Consultations 06/25/23 20:50 Consult Internal Medicine Routine Procedures Performed Operation Date: 06/30/23 08:20 Actual Procedures p L2-L4 Decompression and Fusion, Spinal Cord Monitoring - Nadir Elkins DO Ordered Studies 06/26/23 00:00 MR lumbar spine wo con Stat 06/30/23 07:00 FL lumbar spine 2-3V Routine Hospital Course (1) Neurogenic claudication due to lumbar spinal stenosis: Patient was admitted with severe back and bilateral leg pain. He ultimately underwent lumbar decompression fusion tolerated as well as taken to orthopedic for postop lipid postop and was up and ambulate progress postop day #2 and postoperative 3 pain and improved NATALIA drain decreasing probably. Excellent strength testing. Subsidy discharged home per discharge orders instructions found in chart for further review. Total Time Total Time Spent Total Time Spent (In Minutes): 20 minutes Discharge Plan Discharge Items Patient Disposition: Home - Self-Care Reason For Visit: LEG PAIN AND WEAKNESS Discharge Diagnosis: Lumbar spinal stenosis Activity: As commented below Non-emergency contact: Primary Care Provider Call non-emergency contact if: you have any medication questions Follow-up/Referrals: Erlin Welch [Primary Care Provider] - Diet: Regular Addtl Attending Provider Instructions: ACTIVITY RECOMMENDATIONS: SELF CARE INSTRUCTIONS AFTER THORACIC/LUMBAR FUSIONS 1. You may walk to your tolerance. It is good exercise for your legs and back. Expect some back and intermittent leg aches and pains. 2. You may perform "counter-top" level activities (make a sandwich, brennon with a project, etc.). 3. No bending or lifting of more than 10 pounds or back twisting of any nature (roll like a log when turning in bed). 4. You may ride in a car for 20-30 minutes at a time. No driving until after your first visit with your doctor. 5. Frequent changes of position and restricting sitting to 30 minutes at a time will help limit the amount of back spasms and stiffness you may experience. 6. You may discontinue the use of ambulatory aids (cane, crutches, etc.) once your strength and confidence allow. 7. You may administrative appeals tribunal member the shower and let water strike your incision when you arrive home at least once daily. Do not take a tub bath, sit in a hot tub or go into a swimming pool until after your first recheck in the office. SPECIAL CARE INSTRUCTIONS: VERY IMPORTANT TO READ AND REVIEW A. Your surgical incision has been closed with a cosmetic suture under the skin that will dissolve in about 6 weeks. In 14 days, you can use a pair of clean scissors and cut the suture that is left outside of the skin at the ends of your incision. 1. The small skin tapes can be removed 7 days after surgery if they have not fallen off by that point. 2. You may keep the wound open to air as much as possible to promote healing after post-op day number 5 unless told otherwise by your doctor. 3. If you think the wound looks like it is becoming infected (redness or worsening drainage) and/or you are experiencing fever, chill or worsening back pain and muscle spasms, contact the office so that we may evaluate you as soon as possible. B. Complications are uncommon, but please contact us if you have any signs or symptoms of: 1. wound infection (fever higher than 102.5 degrees F, redness, separation of wound, drainage, or increasing pain from the incision) 2. blood clots in legs (pain, swelling, redness and warmth in legs) 3. urinary tract infection (fever higher than 102.5 degrees F, burning upon urination or increased frequency of urination) 4. nerve problems (inability to walk on your toes or heels, numbness, loss of bowel or bladder control) 5. any other symptoms that concern you C. Please call the office at if you have any concerns or questions about your operation or recovery. D. No smoking! Smoking drastically decreases the chance of a solid fusion. E. Do not take any anti-inflammatory medications (Indocin, Advil, Motrin, Aspirin, Naprosyn, etc.) as these may inhibit the chance of a solid fusion. Tylenol is okay to take for pain. MANAGING PAIN AFTER SPINAL SURGERY 1. Narcotic medication is intended for short-term use and will be provided for surgical pain. Surgical pain usually lasts for a period of 4-6 weeks. Narcotic medication includes Percocet, Vicodin, Darvocet, Tylenol #3 or Lortab. 2. Longer-term pain is more appropriately treated with non-narcotic medication such as Tylenol ES. 3. Muscle spasm is not appropriately treated with narcotics. Muscle relaxers such as Soma, Flexeril or Skelaxin can be used along with Tylenol ES. 4. Remember that we all live with some "aches and pains". This is not unusual or uncommon after an injury or as we get older. a. Back pain is expected and may include muscle spasms for 4 to 6 weeks after surgery. The pain should gradually improve. If the pain worsens for no apparent reason, please contact the office. b. Intermittent leg pain may also be experienced and should not be concerned about unless it worsens for no apparent reason. If so, please contact the office. 5. We will provide appropriate medication within the normal guidelines of their prescribed use. We will also be very cautious and aware of potential abuse and extended duration of patients' medication needs. a. Pain medications are for your comfort and to assist with sleep and rest so that the tissue can heal. They are not provided in order to return to normal activity and should not be used through the day. To do so or worsening pain at night can result from ongoing tissue damage and development of tolerance to the prescribed medicine. 6. Please allow 2-3 days to process refills. Prescriptions will not be mailed but must be picked up at the office. FOLLOW UP VISIT: Keep your scheduled follow-up appointment. Any questions, please call the office at . Pending Studies at Discharge: No Stand-Alone Forms: [facility], Smoking Cessation Medications and DC Order Prescriptions: New oxycodone 5 mg tablet 5 mg PO Q6H PRN (Reason: pain) Qty: 30 0RF lorazepam 1 mg Tablet 1 mg PO Q12 PRN (Reason: anxiety) Qty: 20 0RF Continued gabapentin 600 mg tablet 600 mg PO DIRECTED Rx Instructions: 1 tab am and 1 tab pm quetiapine 100 mg tablet 100 mg PO DAILY ropinirole 2 mg tablet 2 mg PO PM PRN (Reason: Other) diazepam 10 mg tablet 10 mg PO 5XD PRN (Reason: Spasms) quetiapine 50 mg tablet 50 mg PO PM Rx Instructions: take with 100 mg= 150 mg Discharge Orders: Discharge Order (Routine); Ordered 07/03/23 Ordered By: Nadir Elkins Admission Data Admit Date/Time: 06/25/23 19:30 Attending Provider: Nadir Elkins Admit Provider: Nadir Elkins Primary Care Provider: Erlin Welch Other Providers: Zee Toscano ; Wily Medina
[2023-07-03 09:59] LABS: Basophils # (auto) 0.01 K/uL (0-0.2); Basophils % (auto) 0.1 %; Hematocrit (blood only) 35.3 % (42.0-52.0); Hemoglobin 11.3 g/dl (14.0-18.0); Immature Granulocytes # (auto) 0.04 K/uL (0.01-0.20); Immature Granulocytes % (auto) 0.6 %; Lymphocytes # (auto) 0.54 K/uL (1.2-3.4); Lymphocytes % (auto) 7.8 %; Mean Corpuscular Hemoglobin 26.2 pg (25.0-34.0); Mean Corpuscular Volume 81.7 fL (80.0-100.0); Mean Platelet Volume 10.4 fL (9.4-12.4); Monocytes # (auto) 0.33 K/uL (0.11-0.59); Monocytes % (auto) 4.7 %; Neutrophils # (auto) 6.04 K/uL (1.40-6.50); Neutrophils % (auto) 86.8 %; Platelet Count 170 K/uL (130-400); RDW Coefficient of Variation 16.1 % (11.5-14.5); Red Blood Count 4.32 M/uL (4.70-6.10); White Blood Count 6.96 K/ul (4.8-10.8)
== END 2023-07-03 10:23 | disposition home or self-care (01) | DRG 455 ==
LOC: ED 17:56 → 3E 19:30